=== PATIENT | female | born 1975 | race Two or more races ===

== ENCOUNTER 2016-06-23 16:22 | Inpatient (IN) | payer OTHER ==
[2016-06-23 17:09] VITALS: BMI 22.1
--- NOTE | 2016-06-23 18:20 | PDOC ---
History of Present Illness <Clarisa Mercado - Last Filed: 06/23/16 22:54> - General History Source: Patient Exam Limitations: No Limitations - History of Present Illness Initial Comments: 06/23/16 18:14 40 year old female presents to the ED presents to the emergency room for evaluation of displacement from her home. Pt with a significant past medical history of eye nystagmus, Schizoaffective disorder, vertigo, and seizures. patient also history of mental retardation and was living with her grandmother until recently when her mother was [facility]. Patient has been watched by her neighbor and her sister since patient is unable to care for herself. Patient states went to visit her grandmother today and was told by her sister and the neighbor that she can stay with her grandmother at [facility] while the grandmother was there. Shortly thereafter the family left and staff was made aware of situation and told the patient she is unable to stay here with her grandmother and needs further evaluation. Since they were unable to reach the sister staff had called the ambulance and was brought here to [facility]. Patient has no complaints now and is requesting a dinner tray. Timing/Duration: unsure Associated Symptoms: reports: denies symptoms <Ibeth Hernandez - Last Filed: 06/27/16 14:54> - General Chief Complaint: Altered Mental Status Stated Complaint: MED EVAL Time Seen by Provider: 06/23/16 17:01 Past History <Clarisa Mercado - Last Filed: 06/23/16 22:54> - Past Medical History Psychiatric Problems: Yes (schizoeffective) Seizures: Yes - Immunization History Immunization Up to Date: Yes - Psycho/Social/Smoking Cessation Hx Anxiety: No Suicidal Ideation: No Smoking History: Never smoked Have you smoked in the past 12 months: No Number of Cigarettes Smoked Daily: 0 Information on smoking cessation initiated: No Hx Alcohol Use: No Drug/Substance Use Hx: No Substance Use Type: None Patient Lives Alone: No Lives with/in: gm <Ibeth Hernandez - Last Filed: 06/27/16 14:54> - Past Medical History Allergies/Adverse Reactions: Allergies Allergy/AdvReac Type Severity Reaction Status Date / Time Sulfa (Sulfonamide Allergy Verified 06/23/16 17:09 Antibiotics) Home Medications: Ambulatory Orders Buspirone HCl [Buspar -] 10 mg PO TID 06/22/16 Divalproex *ER* [Depakote *ER* -] 250 mg PO BID 06/22/16 Famotidine [Pepcid -] 20 mg PO DAILY #30 tablet 06/22/16 Meclizine HCl [Antivert -] 12.5 mg PO TID 06/22/16 Ondansetron HCl [Zofran] 4 mg PO BID PRN #10 tablet 06/22/16 Levetiracetam [Keppra] 250 mg PO BID 06/23/16 Risperidone 0.5 mg PO TID 06/23/16 Review of Systems - Review of Systems Able to Perform ROS?: Yes Constitutional: No: Symptoms Reported HEENTM: No: Symptoms Reported Respiratory: No: Symptoms reported Cardiac (ROS): No: Symptoms Reported ABD/GI: No: Symptoms Reported : No: Symptoms Reported Musculoskeletal: No: Symptoms Reported Integumentary: No: Symptoms Reported Neurological: No: Symptoms reported Endocrine: No: Symptoms Reported Hematologic/Lymphatic: No: Symptoms Reported <Ibeth Hernandez - Last Filed: 06/27/16 14:54> *Physical Exam - Vital Signs Last Vital Signs Temp Pulse Resp BP Pulse Ox 98.7 F 87 18 124/83 99 06/23/16 16:55 06/23/16 16:55 06/23/16 16:55 06/23/16 16:55 06/23/16 16:55 <Clarisa Mercado - Last Filed: 06/23/16 22:54> - Vital Signs Last Vital Signs Temp Pulse Resp BP Pulse Ox 98.7 F 87 18 124/83 99 06/23/16 16:55 06/23/16 16:55 06/23/16 16:55 06/23/16 16:55 06/23/16 16:55 - Physical Exam General Appearance: Yes: Nourished, Appropriately Dressed. No: Apparent Distress Respiratory/Chest: positive: Lungs Clear, Normal Breath Sounds. negative: Respiratory Distress, Accessory Muscle Use Cardiovascular: positive: Regular Rhythm, Regular Rate. negative: Murmur Gastrointestinal/Abdominal: positive: Soft. negative: Tenderness Integumentary: positive: Normal Color, Warm, Moist Neurologic: positive: Normal Mood/Affect, Motor Strength 5/5 (ambulatory) <Ibeth Hernandez - Last Filed: 06/27/16 14:54> ED Treatment Course - LABORATORY CBC & Chemistry Diagram: 06/23/16 18:30 06/23/16 18:30 - ADDITIONAL ORDERS Additional order review: Laboratory Results 06/23/16 06/23/16 19:35 18:30 Sodium 138 Potassium 4.2 Chloride 100 Carbon Dioxide 28 Anion Gap 10 BUN 12 Creatinine 1.1 H Creat Clearance w eGFR 55.30 Random Glucose 111 H D Calcium 9.1 Total Bilirubin 0.3 AST 15 ALT 18 Alkaline Phosphatase 65 Total Protein 8.1 Albumin 3.9 Urine Color Yellow Urine Appearance Clear Urine pH 6.0 Ur Specific [place] 1.028 Urine Protein Negative Urine Glucose (UA) Negative Urine Ketones Trace H Urine Blood Negative Urine Nitrite Negative Urine Bilirubin Negative Urine Urobilinogen Negative Ur Leukocyte Esterase Negative 06/23/16 18:30 RBC 4.26 MCV 83.1 MCHC 32.7 RDW 13.3 MPV 8.5 Neutrophils % 54.5 Lymphocytes % 33.9 Monocytes % 10.0 Eosinophils % 1.2 Basophils % 0.4 - Medications Given in the ED: ED Medications Discontinued Medications Generic Name Dose Route Start Last Admin Trade Name Freq PRN Reason Stop Dose Admin Buspirone HCl 10 mg 06/23/16 20:19 06/23/16 21:28 Buspar - PO 06/23/16 20:20 10 mg ONCE ONE Administration Divalproex Sodium 250 mg 06/23/16 20:18 06/23/16 21:28 Depakote *Er* - PO 06/23/16 20:19 250 mg ONCE ONE Administration Meclizine HCl 12.5 mg 06/23/16 20:18 06/23/16 21:34 Antivert - PO 06/23/16 20:19 12.5 mg ONCE ONE Administration Pantoprazole Sodium 40 mg 06/23/16 20:02 06/23/16 21:35 Protonix - PO 06/23/16 20:03 40 mg ONCE ONE Administration <Clarisa Mercado - Last Filed: 06/23/16 22:54> - LABORATORY CBC & Chemistry Diagram: 06/23/16 18:30 06/26/16 09:50 <Ibeth Hernandez - Last Filed: 06/27/16 14:54> Medical Decision Making - Medical Decision Making 06/23/16 19:04 Patient here for displacement from her home. Patient with mental retardation although she is physically high functioning. I had [place] [facility] to get the story and states they called the police after they realized family had left including people from the [employer]. Nursing feed inspection supervisor states they cannot care for this patient and did not contact [facility]. I spoke with my nursing feed inspection supervisor who agrees since [facility] is now closed and social media marketer is gone for the day. patient will stay in the ER and be an ER hold until social media marketer comes in the morning. She also gave me the number for the [employer] at [phone] with a dice table person of [employer] Altamirano. Patient is currently stable and will give patient's medications as scheduled which were confirmed with [facility]. 06/23/16 19:06 Patient also ordered for basic labs and an IV due to her history of seizure <Ibeth Hernandez - Last Filed: 06/27/16 14:54> *DC/Admit/Observation/Transfer - Discharge Dispostion Admit: Yes <Clarisa Mercado - Last Filed: 06/23/16 22:54> <Ibeth Hernandez - Last Filed: 06/27/16 14:54> Diagnosis at time of Disposition: Dehydration, Mental retardation - Discharge Dispostion Condition at time of disposition: Stable
[2016-06-23 18:39] LABS: BASOPHIL 0.4 % (0-2.0); EOSINOPHIL 1.2 % (0-4.5); MCH 27.2 pg (25.7-33.7); MCHC 32.7 g/dl (32.0-36.0); MEAN CELL VOLUME 83.1 fl (80-96); MEAN PLT VOLUME 8.5 fl (7.5-11.1); NEUTROPHILS 54.5 % (42.8-82.8); PLATELET COUNT 185 K/MM3 (134-434); RDW 13.3 % (11.6-15.6); WHITE BLOOD COUNT 5.9 K/mm3 (4.0-10.0)
[2016-06-23 19:08] LABS: ALBUMIN 3.9 g/dl (3.4-5.0); BILIRUBIN,TOTAL 0.3 mg/dL (0.2-1.0); CALCIUM 9.1 mg/dL (8.5-10.1); CREATININE 1.1 mg/dL (0.55-1.02); TOT PROT 8.1 g/dl (6.4-8.2)
--- NOTE | 2016-06-23 19:17 | PN ---
<Cliff Hassan - Last Filed: 06/23/16 19:17> Teaching Attending Note Name of Resident: Otto Dunham ATTENDING PHYSICIAN STATEMENT I saw and evaluated the patient. I reviewed the resident's note and discussed the case with the resident. I agree with the resident's findings and plan as documented. SUBJECTIVE: OBJECTIVE: ASSESSMENT AND PLAN: <Anitha Rascon - Last Filed: 06/23/16 20:18> Teaching Attending Note ATTENDING PHYSICIAN STATEMENT I saw and evaluated the patient. I reviewed the resident's note and discussed the case with the resident. I agree with the resident's findings and plan as documented. SUBJECTIVE: Patient is a 40 yo F questionable historian with a PMHx of eye impairment, schizoaffective disorder, vertigo, seizures, and MR who was living with her grandmother. Patient presented to ER endorsing one episode of bloody vomiting with associated burning epigastric pain since yesterday. Patient states her vomit contained a streak of blood mixed in with vomit. Patient rates her abdominal pain a constant 10/10. Currently patient is living home alone due to grandmother being sent to [facility], but pt is unable to take care of herself. Denies: chest pain, palpitations, lightheadedness, diarrhea and headache. OBJECTIVE: Last Vital Signs Temp Pulse Resp BP Pulse Ox 98.7 F 87 18 124/83 99 06/23/16 16:55 06/23/16 16:55 06/23/16 16:55 06/23/16 16:55 06/23/16 16:55 GENERAL: Awake, alert, and fully oriented, in no acute distress. HEENT: Atraumatic. Moist mucosa. Normocephalic. No sinus tenderness. No LAD. NECK: No JVD. No thyroid masses. Supple. LUNGS: Clear to auscultation bilaterally. No wheezing, rhonchi or rales. HEART: Regular rate and rhythm, normal S1 and S2, no murmurs, rubs or gallops, peripheral pulses normal and equal bilaterally. ABDOMEN: Soft, Periumbilical pain tender to palpation, normoactive bowel sounds. No guarding, no rebound. No Masses. MUSCULOSKELETAL: No joint tenderness or erythema. No muscle tenderness. Normal muscle bulk and tone. EXTREMITIES: Normal inspection, No edema. No clubbing or cyanosis. Moves all extremities. NEUROLOGICAL: Normal speech, no focal sensorimotor deficits. SKIN: Warm, dry, normal turgor, no rashes or lesions noted. CBCD WBC 5.9 K/mm3 (4.0-10.0) 06/23/16 18:30 RBC 4.26 M/mm3 (3.60-5.2) 06/23/16 18:30 Hgb 11.6 GM/dL (10.7-15.3) 06/23/16 18:30 Hct 35.4 % (32.4-45.2) 06/23/16 18:30 MCV 83.1 fl (80-96) 06/23/16 18:30 MCHC 32.7 g/dl (32.0-36.0) 06/23/16 18:30 RDW 13.3 % (11.6-15.6) 06/23/16 18:30 Plt Count 185 K/MM3 (134-434) 06/23/16 18:30 MPV 8.5 fl (7.5-11.1) 06/23/16 18:30 CMP Sodium 138 mmol/L (136-145) 06/23/16 18:30 Potassium 4.2 mmol/L (3.5-5.1) 06/23/16 18:30 Chloride 100 mmol/L (98-107) 06/23/16 18:30 Carbon Dioxide 28 mmol/L (21-32) 06/23/16 18:30 Anion Gap 10 (8-16) 06/23/16 18:30 BUN 12 mg/dL (7-18) 06/23/16 18:30 Creatinine 1.1 mg/dL (0.55-1.02) H 06/23/16 18:30 Creat Clearance w eGFR 55.30 (>60) 06/23/16 18:30 Calcium 9.1 mg/dL (8.5-10.1) 06/23/16 18:30 Total Bilirubin 0.3 mg/dL (0.2-1.0) 06/23/16 18:30 AST 15 U/L (15-37) 06/23/16 18:30 ALT 18 U/L (12-78) 06/23/16 18:30 Alkaline Phosphatase 65 U/L (45-117) 06/23/16 18:30 Total Protein 8.1 g/dl (6.4-8.2) 06/23/16 18:30 Albumin 3.9 g/dl (3.4-5.0) 06/23/16 18:30 ASSESSMENT AND PLAN: Patient is a 40 yo F questionable historian with a PMHx of eye impairment, schizoaffective disorder, vertigo, seizures, and MR who presents with abdominal pain. 1.) Abdominal Pain differential dx PUD gastritis -Continue protonix -If not relieved, considered GI eval outpatient 2.) Hemaemesis -Most likely due to vomiting -Questionable Historian -H&H stable -Continue to monitor -If repeat episodes, can consider GI evaluate. 3.) Homelessness -Social work and nurse outreach case manager consult for placement 4.) Seizure disorder -Continue Depakote 5.) Vertigo -Continue Meclizine 6.) Schizoaffective disorder -Continue home meds DVT ppx -Low risk -SCDs Documentation prepared by Anitha Rascon, acting as diagnostic medical sonographer for Cliff Hassan D.O.
[2016-06-23 19:42] LABS: URINE APPEARANCE CLEAR; URINE BILIRUBIN NEGATIVE (NEGATIVE); URINE BLOOD NEGATIVE (NEGATIVE); URINE COLOR YELLOW; URINE GLUCOSE (UA) NEGATIVE (NEGATIVE); URINE KETONE TRACE (NEGATIVE); URINE LEUK ESTERASE NEGATIVE (NEGATIVE); URINE NITRITE NEGATIVE (NEGATIVE); URINE PROTEIN NEGATIVE (NEGATIVE); URINE UROBILINOGEN NEGATIVE E.U./dl (0.2-1.0)
[2016-06-23] MEDS ORDERED: PANTOPRAZOLE 40 MG TABLET (FP) PO ONE (20:02)
[2016-06-23] MEDS ORDERED: MECLIZINE HCL 12.5 MG TABLET PO ONE (20:18)
[2016-06-23] MEDS ORDERED: DIVALPROEX NA *ER* EXTEND REL 250 MG TABLET.SA PO ONE (20:18)
[2016-06-23] MEDS ORDERED: busPIRone HCL 10 MG TABLET (FP) PO ONE (20:19)
--- NOTE | 2016-06-23 20:20 | HP ---
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 Pt normally lives with her grandmother who takes care of pt. Grandmother recently had surgery done and is now at [facility]) for rehab. During grandmother's hospital stay pt lived with her oldest sister in [place]. Today she was to go to [place] to stay with her grandmother where she was told she would be able to stay. She arrived at [facility] and thereafter was told she would not be allowed to stay and was brought to ER. Here she admitted to having 1 episode of vomit w/ streak of blood on Friday (~5 days ago) which was unprovoked and no other episodes of emesis since then. She also c/o 10/10 abdominal pain, non- radiating, located in epigastric area, constant, burning since yesterday. Pain is worsened with eating and there are no alleviating factors. No change in diet , denies N/V/F/C, diarrhea, constipation, blood in stool, black or tarry stool at this time. She also denies CP, SOB, dysuria, or any peripheral swelling. 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), schizoaffective d/o, vertigo, seizures, mental retardation PAST SURGICAL HISTORY: L eye surgery for retina tear when she was a baby Social History: Smoking: denies Alcohol: denies Drugs: denies Allergies Sulfa (Sulfonamide Antibiotics) Allergy (Verified 06/23/16 17:09) - HOME MEDICATIONS: Home Medications Medication Instructions Recorded Buspirone HCl [Buspar -] 10 mg PO TID 06/22/16 Divalproex *ER* [Depakote *ER* -] 250 mg PO BID 06/22/16 Famotidine [Pepcid -] 20 mg PO DAILY #30 tablet 06/22/16 Meclizine HCl [Antivert -] 12.5 mg PO TID 06/22/16 Ondansetron HCl [Zofran] 4 mg PO BID PRN #10 tablet 04/01/17 REVIEW OF SYSTEMS CONSTITUTIONAL: Absent: fever, chills, diaphoresis, generalized weakness, malaise, loss of appetite, weight change HEENT: Absent: rhinorrhea, nasal congestion, throat pain, throat swelling, difficulty swallowing, mouth swelling, ear pain, eye pain, visual changes CARDIOVASCULAR: Absent: chest pain, syncope, palpitations, irregular heart rate, lightheadedness , peripheral edema RESPIRATORY: Absent: cough, shortness of breath, dyspnea with exertion, orthopnea, wheezing, stridor, hemoptysis GASTROINTESTINAL: abd pain, vomiting Absent: abdominal distension, nausea, diarrhea, constipation, melena, hematochezia GENITOURINARY: Absent: dysuria, frequency, urgency, hesitancy, hematuria, flank pain, genital pain MUSCULOSKELETAL: Absent: myalgia, arthralgia, joint swelling, back pain, neck pain SKIN: Absent: rash, itching, pallor HEMATOLOGIC/IMMUNOLOGIC: Absent: easy bleeding, easy bruising, lymphadenopathy, frequent infections ENDOCRINE: Absent: unexplained weight gain, unexplained weight loss, heat intolerance, cold intolerance NEUROLOGIC: Absent: headache, focal weakness or paresthesias, dizziness, unsteady gait, seizure, mental status changes, bladder or bowel incontinence PSYCHIATRIC: Absent: anxiety, depression, suicidal or homicidal ideation, hallucinations. PHYSICAL EXAMINATION Vital Signs - 24 hr 06/23/16 16:55 Temperature 98.7 F Pulse Rate 87 Respiratory 18 Rate Blood Pressure 124/83 O2 Sat by Pulse 99 Oximetry (%) GENERAL: Awake, alert, and fully oriented, in no acute distress. HEAD: Normal with no signs of trauma. EYES: sclera anicteric, conjunctiva clear. No lid lag. EARS, NOSE, THROAT: Ears normal, nares patent. Moist mucous membranes. NECK: Normal range of motion, supple without lymphadenopathy, JVD, or masses. LUNGS: Breath sounds equal, clear to auscultation bilaterally. No wheezes, and no crackles. No accessory muscle use. HEART: Regular rate and rhythm, normal S1 and S2 without murmur, rub or gallop. ABDOMEN: Soft, tender to palpation in epigastric and periumbilical region, not distended, normoactive bowel sounds, no guarding, no rebound, no masses. No hepatomegaly or splenomegaly. MUSCULOSKELETAL: Normal range of motion at all joints. No bony deformities or tenderness. No CVA tenderness. LOWER EXTREMITIES:well-perfused. No calf tenderness. No peripheral edema. NEUROLOGICAL: Normal speech. Normal gait. PSYCHIATRIC: Cooperative. Good eye contact. Appropriate mood and affect. Mild MR SKIN: Warm, dry, normal turgor, no rashes or lesions noted, normal capillary refill. Laboratory Results - last 24 hr 06/23/16 06/23/16 06/23/16 18:30 18:30 19:35 WBC 5.9 RBC 4.26 Hgb 11.6 Hct 35.4 MCV 83.1 MCHC 32.7 RDW 13.3 Plt Count 185 MPV 8.5 Neutrophils % 54.5 Lymphocytes % 33.9 Monocytes % 10.0 Eosinophils % 1.2 Basophils % 0.4 Sodium 138 Potassium 4.2 Chloride 100 Carbon Dioxide 28 Anion Gap 10 BUN 12 Creatinine 1.1 H Creat Clearance w eGFR 55.30 Random Glucose 111 H D Calcium 9.1 Total Bilirubin 0.3 AST 15 ALT 18 Alkaline Phosphatase 65 Total Protein 8.1 Albumin 3.9 Urine Color Yellow Urine Appearance Clear Urine pH 6.0 Ur Specific [place] 1.028 Urine Protein Negative Urine Glucose (UA) Negative Urine Ketones Trace H Urine Blood Negative Urine Nitrite Negative Urine Bilirubin Negative Urine Urobilinogen Negative Ur Leukocyte Esterase Negative ASSESSMENT/PLAN: 40 y/o F w/PMH of 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 Monitor in obs for abd pain. -Abd pain secondary to PUD vs gastritis -Pt had 1 episode of emesis w/streak of blood 5 days ago -H/H stable, continue to monitor -Protonix 40 mg PO once ordered, continue if it gives pt relief -SUPA on possible CKD -BUN/Cr 02/21.1 -Monitor BUN/Cr -Hx of seizures -c/w keppra 500 mg po bid, depakote er 250 mg po bid -Schizoaffective d/o -c/w buspirone 10 mg po tid, risperidone 0.5 mg po tid -hx of veritgo -c/w meclizine 12.5 mg po tid -DVT ppx -SCDs -FEN -No fluids -electrolytes wnl -Regular diet -Homelessness -licensed clinical social worker -check for placement with grandmother in [place] -Dispo: -Monitor in obs, check for placement with grandmother in [facility] Problem List - Problem (1) Mental retardation Code(s): F79 - UNSPECIFIED INTELLECTUAL DISABILITIES (2) Schizoaffective disorder Code(s): F25.9 - SCHIZOAFFECTIVE DISORDER, UNSPECIFIED (3) Gastritis Code(s): K29.70 - GASTRITIS, UNSPECIFIED, WITHOUT BLEEDING Qualifiers: Gastritis type: unspecified gastritis Chronicity: acute Gastritis bleeding: presence of bleeding unspecified Qualified Code(s): K29.00 - Acute gastritis without bleeding (4) Seizure disorder Code(s): G40.909 - EPILEPSY, UNSP, NOT INTRACTABLE, WITHOUT STATUS EPILEPTICUS (5) Vomiting Code(s): R11.10 - VOMITING, UNSPECIFIED Qualifiers: Vomiting type: unspecified Vomiting Intractability: non-intractable Nausea presence: with nausea Qualified Code(s): R11.2 - Nausea with vomiting, unspecified (6) SUPA (acute kidney injury) Code(s): N17.9 - ACUTE KIDNEY FAILURE, UNSPECIFIED Visit type - Emergency Visit Emergency Visit: Yes ED Registration Date: 06/24/16 Care time: The patient presented to the Emergency Department on the above date and was hospitalized for further evaluation of their emergent condition. - New Patient This patient is new to me today: Yes Date on this admission: 06/27/16 - Critical Care Critical Care patient: No
[2016-06-23] MEDS ORDERED: PANTOPRAZOLE 40 MG TABLET (FP) ONE (21:29)
[2016-06-23] MEDS ORDERED: MECLIZINE HCL 12.5 MG TABLET ONE (21:30)
[2016-06-23] MEDS: levETIRAcetam 250 MG TABLET (FP) PO SCH (22:19)
[2016-06-23] MEDS: risperiDONE 0.5 MG TABLET (FP) PO SCH (22:59)
[2016-06-24] MEDS ORDERED: MECLIZINE HCL 12.5 MG TABLET ONE (06:55)
[2016-06-24] MEDS: MECLIZINE HCL 12.5 MG TABLET PO SCH ×3 (06:56→21:47)
[2016-06-24] MEDS: busPIRone HCL 10 MG TABLET (FP) PO SCH ×3 (08:58→21:48)
[2016-06-24] MEDS: risperiDONE 0.5 MG TABLET (FP) PO SCH ×3 (08:58→21:49)
[2016-06-24] MEDS: DIVALPROEX NA *ER* EXTEND REL 250 MG TABLET.SA PO SCH ×2 (11:15→22:01)
[2016-06-24] MEDS: levETIRAcetam 250 MG TABLET (FP) PO SCH ×2 (11:15→21:47)
[2016-06-24] MEDS ORDERED: PT OWN MED DRAWER 7, Y5N ONE (13:37)
--- NOTE | 2016-06-24 17:36 | PN ---
Physical Exam: SUBJECTIVE: Patient seen and examined at bedside states abdominal pain is the same and has not gotten better or worse. OBJECTIVE: Vital Signs Period Temp Pulse Resp BP Sys/[place] Pulse Ox Last 24 Hr 97.9 F-98 F 92-104 18-18 118-131/73-80 98 GENERAL: The patient is awake and alert ENT: moist mucous membranes. NECK: Trachea midline, full range of motion, supple. LUNGS: Breath sounds equal, clear to auscultation bilaterally HEART: Regular rate and rhythm, S1, S2 ABDOMEN: Soft, nontender, nondistended, normoactive bowel sounds EXTREMITIES: warm, well-perfused Active Medications Generic Name Dose Route Start Last Admin Trade Name Freq PRN Reason Stop Dose Admin Buspirone HCl 10 mg 06/24/16 06:00 06/24/16 14:02 Buspar - PO 10 mg TID DARIAN Administration Divalproex Sodium 250 mg 06/24/16 10:00 06/24/16 11:15 Depakote *Er* - PO 250 mg BID DARIAN Administration Levetiracetam 250 mg 06/23/16 22:00 06/24/16 11:15 Keppra - PO 250 mg BID DARIAN Administration Meclizine HCl 12.5 mg 06/24/16 06:00 06/24/16 14:02 Antivert - PO 12.5 mg TID DARIAN Administration Risperidone 0.5 mg 06/23/16 22:00 06/24/16 14:02 Risperdal - PO 0.5 mg TID DARIAN Administration ASSESSMENT/PLAN: 40F schizoaffective disorder, vertigo, seizures, mental retardation presents to ER due to displacement from home. Abdominal pain:states she gets it after meals mostly possible from gastritis appears to be improving on exam SUPA on possible CKD patient does not have acute kidney injury as her chart was reviewed and it seems her baseline Cr is 1.1 History of seizures continue keppra 500 mg po bid, depakote er 250 mg po bid Schizoaffective disorder continue buspirone 10 mg po tid, risperidone 0.5 mg po tid hx of veritgo continue meclizine 12.5 mg po tid PPx: HSQ/SCDs/Ambulate No GI PPx needed no PT consult needed FEN No IVF No electrolyte issues regular diet lawn maintenance worker and case management aware of patient's situation at this time. patient can not take care of herself and her grandmother who takes care of her is currently in [facility]. per patient her grandmother will be released soon. SW looking at placement options. Visit type - Emergency Visit Emergency Visit: Yes ED Registration Date: 06/24/16 Care time: The patient presented to the Emergency Department on the above date and was hospitalized for further evaluation of their emergent condition. - New Patient This patient is new to me today: Yes Date on this admission: 06/24/16 - Critical Care Critical Care patient: No - Discharge Referral Referred to [id number] No
--- NOTE | 2016-06-24 21:44 | PN ---
Teaching Attending Note Name of Resident: Kenroy Cleveland ATTENDING PHYSICIAN STATEMENT I saw and evaluated the patient. I reviewed the resident's note and discussed the case with the resident. I agree with the resident's findings and plan as documented. PAtient is c/o having abdominal pain that is not improved yet . Vital Signs Temperature 98.6 F 06/24/16 18:00 Pulse Rate 93 H 06/24/16 18:00 Respiratory Rate 18 06/24/16 18:00 Blood Pressure 131/80 06/24/16 12:20 O2 Sat by Pulse Oximetry (%) 98 06/24/16 10:15 CBCD WBC 5.9 K/mm3 (4.0-10.0) 06/23/16 18:30 RBC 4.26 M/mm3 (3.60-5.2) 06/23/16 18:30 Hgb 11.6 GM/dL (10.7-15.3) 06/23/16 18:30 Hct 35.4 % (32.4-45.2) 06/23/16 18:30 MCV 83.1 fl (80-96) 06/23/16 18:30 MCHC 32.7 g/dl (32.0-36.0) 06/23/16 18:30 RDW 13.3 % (11.6-15.6) 06/23/16 18:30 Plt Count 185 K/MM3 (134-434) 06/23/16 18:30 MPV 8.5 fl (7.5-11.1) 06/23/16 18:30 CMP Sodium 138 mmol/L (136-145) 06/23/16 18:30 Potassium 4.2 mmol/L (3.5-5.1) 06/23/16 18:30 Chloride 100 mmol/L (98-107) 06/23/16 18:30 Carbon Dioxide 28 mmol/L (21-32) 06/23/16 18:30 Anion Gap 10 (8-16) 06/23/16 18:30 BUN 12 mg/dL (7-18) 06/23/16 18:30 Creatinine 1.1 mg/dL (0.55-1.02) H 06/23/16 18:30 Creat Clearance w eGFR 55.30 (>60) 06/23/16 18:30 Random Glucose 111 mg/dL (74-106) H D 06/23/16 18:30 Calcium 9.1 mg/dL (8.5-10.1) 06/23/16 18:30 Total Bilirubin 0.3 mg/dL (0.2-1.0) 06/23/16 18:30 AST 15 U/L (15-37) 06/23/16 18:30 ALT 18 U/L (12-78) 06/23/16 18:30 Alkaline Phosphatase 65 U/L (45-117) 06/23/16 18:30 Total Protein 8.1 g/dl (6.4-8.2) 06/23/16 18:30 Albumin 3.9 g/dl (3.4-5.0) 06/23/16 18:30 Current Medications Generic Name Dose Route Start Last Admin Trade Name Freq PRN Reason Stop Dose Admin Buspirone HCl 10 mg 06/24/16 06:00 06/24/16 14:02 Buspar - PO 10 mg TID DARIAN Administration Divalproex Sodium 250 mg 06/24/16 10:00 06/24/16 11:15 Depakote *Er* - PO 250 mg BID DARIAN Administration Levetiracetam 250 mg 06/23/16 22:00 06/24/16 11:15 Keppra - PO 250 mg BID DARIAN Administration Meclizine HCl 12.5 mg 06/24/16 06:00 06/24/16 14:02 Antivert - PO 12.5 mg TID DARIAN Administration Risperidone 0.5 mg 06/23/16 22:00 06/24/16 14:02 Risperdal - PO 0.5 mg TID DARIAN Administration Home Medications Medication Instructions Recorded Buspirone HCl [Buspar -] 10 mg PO TID 06/22/16 Divalproex *ER* [Depakote *ER* -] 250 mg PO BID 06/22/16 Famotidine [Pepcid -] 20 mg PO DAILY #30 tablet 06/22/16 Meclizine HCl [Antivert -] 12.5 mg PO TID 06/22/16 Ondansetron HCl [Zofran] 4 mg PO BID PRN #10 tablet 06/22/16 Levetiracetam [Keppra] 250 mg PO BID 04/02/17 Risperidone 0.5 mg PO TID 06/23/16 ROS/PE: as per resident's note ASSESSMENT AND PLAN: Patient 40yo Female schizoaffective disorder, vertigo, seizures, mental retardation presents to ER due to displacement from home. #Abdominal pain possible from gastritis ;appears to be improving on exam, will increase her Pepcid to 40mg IV for now #SUPA over CKD will continue IVF #History of seizures continue keppra 500 mg po bid, depakote er 250 mg po bid # Schizoaffective disorder continue buspirone 10 mg po tid, risperidone 0.5 mg po tid # hx of veritgo continue meclizine 12.5 mg po tid DVT Px: Lovenox sq
[2016-06-25] MEDS: risperiDONE 0.5 MG TABLET (FP) PO SCH ×3 (05:42→21:25)
[2016-06-25] MEDS: MECLIZINE HCL 12.5 MG TABLET PO SCH ×3 (05:43→21:25)
[2016-06-25] MEDS: busPIRone HCL 10 MG TABLET (FP) PO SCH ×3 (05:43→21:25)
[2016-06-25] MEDS ORDERED: FAMOTIDINE 20 MG/50 ML IVPB 50 ML IVPB SCH (10:00)
[2016-06-25] MEDS ORDERED: SODIUM CHLORIDE 1,000 ML IV SCH (10:00)
[2016-06-25] MEDS: levETIRAcetam 250 MG TABLET (FP) PO SCH ×2 (11:08→21:25)
[2016-06-25] MEDS: DIVALPROEX NA *ER* EXTEND REL 250 MG TABLET.SA PO SCH ×2 (11:08→21:25)
[2016-06-25] MEDS: ENOXAPARIN NA (PORCINE) 40 MG/0.4 ML DISP.SYRIN SQ SCH (11:10)
--- NOTE | 2016-06-25 11:19 | PN ---
Physical Exam: SUBJECTIVE: Patient seen and examined at bedside states her abdominal pain is much better than yesterday OBJECTIVE: Vital Signs Period Temp Pulse Resp BP Sys/Hylton Pulse Ox Last 24 Hr 97.9 F-98.6 F 76-93 18-20 120-131/65-80 98-98 ENERAL: The patient is awake and alert ENT: moist mucous membranes. NECK: Trachea midline, full range of motion, supple. LUNGS: Breath sounds equal, clear to auscultation bilaterally HEART: Regular rate and rhythm, S1, S2 ABDOMEN: Soft, nontender, nondistended, normoactive bowel sounds EXTREMITIES: warm, well-perfused Active Medications Generic Name Dose Route Start Last Admin Trade Name Freq PRN Reason Stop Dose Admin Buspirone HCl 10 mg 06/24/16 06:00 06/25/16 05:43 Buspar - PO 10 mg TID DARIAN Administration Divalproex Sodium 250 mg 06/24/16 10:00 06/25/16 11:08 Depakote *Er* - PO 250 mg BID DARIAN Administration Enoxaparin Sodium 40 mg 06/25/16 10:00 06/25/16 11:10 Lovenox - SQ Not Given DAILY DARIAN Famotidine/Sodium Chloride 50 mls @ 100 mls/hr 06/25/16 10:00 Pepcid 20 Mg Premixed Ivpb - IVPB BID DARIAN Levetiracetam 250 mg 06/23/16 22:00 06/25/16 11:08 Keppra - PO 250 mg BID DARIAN Administration Meclizine HCl 12.5 mg 06/24/16 06:00 06/25/16 05:43 Antivert - PO 12.5 mg TID DARIAN Administration Risperidone 0.5 mg 06/23/16 22:00 06/25/16 05:42 Risperdal - PO 0.5 mg TID DARIAN Administration ASSESSMENT/PLAN: 40F schizoaffective disorder, vertigo, seizures, mental retardation presents to ER due to displacement from home. Abdominal pain:states she gets it after meals mostly possible from gastritis continue to improve restart pepcid SUPA on possible CKD patient does not have acute kidney injury as her chart was reviewed and it seems her baseline Cr is 1.1 History of seizures continue keppra 500 mg po bid, depakote er 250 mg po bid Schizoaffective disorder continue buspirone 10 mg po tid, risperidone 0.5 mg po tid hx of veritgo continue meclizine 12.5 mg po tid PPx: HSQ/SCDs/Ambulate Pepcid no PT consult needed FEN No IVF No electrolyte issues regular diet Dispo: loft worker and case management aware of patient's situation at this time. patient can not take care of herself and her grandmother who takes care of her is currently in [facility]. per patient her grandmother will be released soon. SW looking at placement options. Visit type - Emergency Visit Emergency Visit: Yes ED Registration Date: 06/24/16 Care time: The patient presented to the Emergency Department on the above date and was hospitalized for further evaluation of their emergent condition. - New Patient This patient is new to me today: No - Critical Care Critical Care patient: No
--- NOTE | 2016-06-25 14:12 | PN ---
Teaching Attending Note Name of Resident: Kenroy Cleveland ATTENDING PHYSICIAN STATEMENT I saw and evaluated the patient. I reviewed the resident's note and discussed the case with the resident. I agree with the resident's findings and plan as documented. Patient is comfortable with no acute distress, no shortness of breath. Abdominal pain is better today Vital Signs Temperature 98.2 F 06/25/16 10:00 Pulse Rate 76 06/25/16 10:00 Respiratory Rate 20 06/25/16 10:00 Blood Pressure 124/70 06/25/16 10:00 O2 Sat by Pulse Oximetry (%) 98 06/25/16 05:51 CBCD WBC 5.9 K/mm3 (4.0-10.0) 06/23/16 18:30 RBC 4.26 M/mm3 (3.60-5.2) 06/23/16 18:30 Hgb 11.6 GM/dL (10.7-15.3) 06/23/16 18:30 Hct 35.4 % (32.4-45.2) 06/23/16 18:30 MCV 83.1 fl (80-96) 06/23/16 18:30 MCHC 32.7 g/dl (32.0-36.0) 06/23/16 18:30 RDW 13.3 % (11.6-15.6) 06/23/16 18:30 Plt Count 185 K/MM3 (134-434) 06/23/16 18:30 MPV 8.5 fl (7.5-11.1) 06/23/16 18:30 CMP Sodium 138 mmol/L (136-145) 06/23/16 18:30 Potassium 4.2 mmol/L (3.5-5.1) 06/23/16 18:30 Chloride 100 mmol/L (98-107) 06/23/16 18:30 Carbon Dioxide 28 mmol/L (21-32) 06/23/16 18:30 Anion Gap 10 (8-16) 06/23/16 18:30 BUN 12 mg/dL (7-18) 06/23/16 18:30 Creatinine 1.1 mg/dL (0.55-1.02) H 06/23/16 18:30 Creat Clearance w eGFR 55.30 (>60) 06/23/16 18:30 Random Glucose 111 mg/dL (74-106) H D 06/23/16 18:30 Calcium 9.1 mg/dL (8.5-10.1) 06/23/16 18:30 Total Bilirubin 0.3 mg/dL (0.2-1.0) 06/23/16 18:30 AST 15 U/L (15-37) 06/23/16 18:30 ALT 18 U/L (12-78) 06/23/16 18:30 Alkaline Phosphatase 65 U/L (45-117) 06/23/16 18:30 Total Protein 8.1 g/dl (6.4-8.2) 06/23/16 18:30 Albumin 3.9 g/dl (3.4-5.0) 06/23/16 18:30 Home Medications Medication Instructions Recorded Buspirone HCl [Buspar -] 10 mg PO TID 06/22/16 Divalproex *ER* [Depakote *ER* -] 250 mg PO BID 06/22/16 Famotidine [Pepcid -] 20 mg PO DAILY #30 tablet 06/22/16 Meclizine HCl [Antivert -] 12.5 mg PO TID 06/22/16 Ondansetron HCl [Zofran] 4 mg PO BID PRN #10 tablet 06/22/16 Levetiracetam [Keppra] 250 mg PO BID 06/23/16 Risperidone 0.5 mg PO TID 06/23/16 ROS/PE: as per resident's note ASSESSMENT AND PLAN: Patient 40yo Female schizoaffective disorder, vertigo, seizures, mental retardation presents to ER due to displacement from home. #Abdominal pain improving possible from gastritis will place her on Zantac #History of seizures continue keppra 500 mg po bid, depakote er 250 mg po bid # Schizoaffective disorder continue buspirone 10 mg po tid, risperidone 0.5 mg po tid # hx of veritgo continue meclizine 12.5 mg po tid DVT Px: Lovenox sq Patient might need palcemant to [place]
[2016-06-25] MEDS ORDERED: ACETAMINOPHEN 325 MG TABLET (FP) PO ONE (20:44)
[2016-06-25] MEDS ORDERED: PT OWN MED DRAWER 7, Y5N ONE (21:09)
[2016-06-25] MEDS: RANITIDINE HCL 150 MG TABLET (FP) PO SCH (21:26)
[2016-06-26] MEDS ORDERED: PT OWN MED DRAWER 7, Y5N ONE ×3 (05:57→13:02)
[2016-06-26] MEDS: MECLIZINE HCL 12.5 MG TABLET PO SCH ×3 (06:14→22:00)
[2016-06-26] MEDS: risperiDONE 0.5 MG TABLET (FP) PO SCH ×3 (06:14→22:00)
[2016-06-26] MEDS: busPIRone HCL 10 MG TABLET (FP) PO SCH ×3 (06:14→22:00)
[2016-06-26] MEDS: RANITIDINE HCL 150 MG TABLET (FP) PO SCH ×2 (09:53→21:59)
[2016-06-26] MEDS: DIVALPROEX NA *ER* EXTEND REL 250 MG TABLET.SA PO SCH ×2 (09:53→22:00)
[2016-06-26] MEDS: ENOXAPARIN NA (PORCINE) 40 MG/0.4 ML DISP.SYRIN SQ SCH (09:53)
[2016-06-26] MEDS: levETIRAcetam 250 MG TABLET (FP) PO SCH ×2 (09:53→21:59)
[2016-06-26 10:20] LABS: CALCIUM 8.1 mg/dL (8.5-10.1)
--- NOTE | 2016-06-26 15:28 | PN ---
Physical Exam: SUBJECTIVE: Patient seen and examined at bedside some abdominal pain which is improving OBJECTIVE: Vital Signs Period Temp Pulse Resp BP Sys/Hylton Pulse Ox Last 24 Hr 97.6 F-98.2 F 56-87 18-20 99-131/57-82 98 GENERAL: The patient is awake and alert ENT: moist mucous membranes. NECK: Trachea midline, full range of motion, supple. LUNGS: Breath sounds equal, clear to auscultation bilaterally HEART: Regular rate and rhythm, S1, S2 ABDOMEN: Soft, nontender, nondistended, normoactive bowel sounds EXTREMITIES: warm, well-perfused Laboratory Results - last 24 hr 06/26/16 09:50 Sodium 140 Potassium 3.7 Chloride 106 Carbon Dioxide 26 Anion Gap 8 BUN 10 Creatinine 1.0 Random Glucose 100 Calcium 8.1 L Active Medications Generic Name Dose Route Start Last Admin Trade Name Freq PRN Reason Stop Dose Admin Buspirone HCl 10 mg 06/24/16 06:00 06/26/16 13:08 Buspar - PO 10 mg TID DARIAN Administration Divalproex Sodium 250 mg 06/24/16 10:00 06/26/16 09:53 Depakote *Er* - PO 250 mg BID DARIAN Administration Enoxaparin Sodium 40 mg 06/25/16 10:00 06/26/16 09:53 Lovenox - SQ Not Given DAILY DARIAN Levetiracetam 250 mg 06/23/16 22:00 06/26/16 09:53 Keppra - PO 250 mg BID DARIAN Administration Meclizine HCl 12.5 mg 06/24/16 06:00 06/26/16 13:08 Antivert - PO 12.5 mg TID DARIAN Administration Ranitidine HCl 150 mg 06/25/16 22:00 06/26/16 09:53 Zantac - PO 150 mg BID DARIAN Administration Risperidone 0.5 mg 06/23/16 22:00 06/26/16 13:08 Risperdal - PO 0.5 mg TID DARIAN Administration ASSESSMENT/PLAN: 40F schizoaffective disorder, vertigo, seizures, mental retardation presents to ER due to displacement from home. Abdominal pain:states she gets it after meals mostly possible from gastritis continue to improve continue zantac SUPA on possible CKD patient does not have acute kidney injury as her chart was reviewed and it seems her baseline Cr is 1.1 History of seizures continue keppra 500 mg po bid, depakote er 250 mg po bid Schizoaffective disorder continue buspirone 10 mg po tid, risperidone 0.5 mg po tid hx of veritgo continue meclizine 12.5 mg po tid PPx: Lovenox/SCDs/Ambulate Zanat no PT consult needed FEN No IVF No electrolyte issues regular diet Dispo: shellfish bed worker and case management aware of patient's situation at this time. patient can not take care of herself and her grandmother who takes care of her is currently in [facility]. per patient her grandmother will be released soon. SW looking at placement options. Visit type - Emergency Visit Emergency Visit: Yes ED Registration Date: 06/24/16 Care time: The patient presented to the Emergency Department on the above date and was hospitalized for further evaluation of their emergent condition. - New Patient This patient is new to me today: No - Critical Care Critical Care patient: No
--- NOTE | 2016-06-26 18:24 | PN ---
Teaching Attending Note Name of Resident: Kenroy Cleveland ATTENDING PHYSICIAN STATEMENT I saw and evaluated the patient. I reviewed the resident's note and discussed the case with the resident. I agree with the resident's findings and plan as documented. SUBJECTIVE: cont to have mild epigastric pain , no other complaints OBJECTIVE: NAD CV : RRR Lungs : CTAB ext : no edema Abd ;soft, NT, NL BS ASSESSMENT AND PLAN: 40 y/o lady with mild MR, schizoaffective DO , and seizures who presented with abd pain 1- possible gastritis : cont zantac 2- vertigo : cont meclizine 3- Schizoaffective disorder : continue buspirone and risperidone 4- seizure do : cont valproik acid Current Medications 4- seizure do : cont valproik acid Generic Name Dose Route Start Last Admin Trade Name Freq PRN Reason Stop Dose Admin Buspirone HCl 10 mg 06/24/16 06:00 06/26/16 13:08 Buspar - PO 10 mg TID DARIAN Administration Divalproex Sodium 250 mg 06/24/16 10:00 06/26/16 09:53 Depakote *Er* - PO 250 mg BID DARIAN Administration Enoxaparin Sodium 40 mg 06/25/16 10:00 06/26/16 09:53 Lovenox - SQ Not Given DAILY DARIAN Levetiracetam 250 mg 06/23/16 22:00 06/26/16 09:53 Keppra - PO 250 mg BID DARIAN Administration Meclizine HCl 12.5 mg 06/24/16 06:00 06/26/16 13:08 Antivert - PO 12.5 mg TID DARIAN Administration Ranitidine HCl 150 mg 06/25/16 22:00 06/26/16 09:53 Zantac - PO 150 mg BID DARIAN Administration Risperidone 0.5 mg 06/23/16 22:00 06/26/16 13:08 Risperdal - PO 0.5 mg TID DARIAN Administration
[2016-06-27] MEDS: busPIRone HCL 10 MG TABLET (FP) PO SCH ×3 (05:58→21:05)
[2016-06-27] MEDS: MECLIZINE HCL 12.5 MG TABLET PO SCH ×3 (05:58→21:05)
[2016-06-27] MEDS: risperiDONE 0.5 MG TABLET (FP) PO SCH ×3 (05:59→21:05)
[2016-06-27] MEDS ORDERED: PT OWN MED DRAWER 7, Y5N ONE ×3 (10:30→20:49)
[2016-06-27] MEDS: DIVALPROEX NA *ER* EXTEND REL 250 MG TABLET.SA PO SCH ×2 (10:31→21:05)
[2016-06-27] MEDS: levETIRAcetam 250 MG TABLET (FP) PO SCH ×2 (10:31→21:05)
[2016-06-27] MEDS: RANITIDINE HCL 150 MG TABLET (FP) PO SCH ×2 (10:31→21:05)
[2016-06-27] MEDS: ENOXAPARIN NA (PORCINE) 40 MG/0.4 ML DISP.SYRIN SQ SCH (10:32)
--- NOTE | 2016-06-27 12:25 | PN ---
Physical Exam: SUBJECTIVE: Patient seen and examined at bedside feels better today OBJECTIVE: Vital Signs Period Temp Pulse Resp BP Sys/Hylton Pulse Ox Last 24 Hr 97.8 F-99.5 F 70-87 16-20 106-129/50-74 97 GENERAL: The patient is awake and alert ENT: moist mucous membranes. NECK: Trachea midline, full range of motion, supple. LUNGS: Breath sounds equal, clear to auscultation bilaterally HEART: Regular rate and rhythm, S1, S2 ABDOMEN: Soft, nontender, nondistended, normoactive bowel sounds EXTREMITIES: warm, well-perfused Active Medications Generic Name Dose Route Start Last Admin Trade Name Freq PRN Reason Stop Dose Admin Buspirone HCl 10 mg 06/24/16 06:00 06/27/16 05:58 Buspar - PO 10 mg TID DARIAN Administration Divalproex Sodium 250 mg 06/24/16 10:00 06/27/16 10:31 Depakote *Er* - PO 250 mg BID DARIAN Administration Enoxaparin Sodium 40 mg 06/25/16 10:00 06/27/16 10:32 Lovenox - SQ Not Given DAILY DARIAN Levetiracetam 250 mg 06/23/16 22:00 06/27/16 10:31 Keppra - PO 250 mg BID DARIAN Administration Meclizine HCl 12.5 mg 06/24/16 06:00 06/27/16 05:58 Antivert - PO 12.5 mg TID DARIAN Administration Ranitidine HCl 150 mg 06/25/16 22:00 06/27/16 10:31 Zantac - PO 150 mg BID DARIAN Administration Risperidone 0.5 mg 06/23/16 22:00 06/27/16 05:59 Risperdal - PO 0.5 mg TID DARIAN Administration ASSESSMENT/PLAN: 40F schizoaffective disorder, vertigo, seizures, mental retardation presents to ER due to displacement from home. Abdominal pain:states she gets it after meals mostly possible from gastritis continue to improve continue zantac SUPA on possible CKD patient does not have acute kidney injury as her chart was reviewed and it seems her baseline Cr is 1.1 Cr today 1.0 History of seizures continue keppra 500 mg po bid, depakote er 250 mg po bid Schizoaffective disorder continue buspirone 10 mg po tid, risperidone 0.5 mg po tid hx of veritgo continue meclizine 12.5 mg po tid PPx: Lovenox/SCDs/Ambulate nat no PT consult needed FEN No IVF No electrolyte issues regular diet Dispo: tension worker and case management aware of patient's situation at this time. patient can not take care of herself and her grandmother who takes care of her is currently in [facility]. per patient her grandmother will be released soon. SW looking at placement options. Visit type - Emergency Visit Emergency Visit: Yes ED Registration Date: 06/24/16 Care time: The patient presented to the Emergency Department on the above date and was hospitalized for further evaluation of their emergent condition. - New Patient This patient is new to me today: No - Critical Care Critical Care patient: No - Discharge Referral Referred to [facility] Med P.C.: No
--- NOTE | 2016-06-27 15:33 | PN ---
Teaching Attending Note Name of Resident: Kenroy Cleveland ATTENDING PHYSICIAN STATEMENT I saw and evaluated the patient. I reviewed the resident's note and discussed the case with the resident. I agree with the resident's findings and plan as documented. SUBJECTIVE: no fever or chills, ate well today with no abd pain OBJECTIVE: NAD CV : RRR Lungs : CTAB ext : no edema Abd ;soft, NT, NL BS ASSESSMENT AND PLAN: 40 y/o lady with mild MR, schizoaffective DO , and seizures who presented with abd pain 1- possible gastritis : cont zantac 2- vertigo : cont meclizine 3- Schizoaffective disorder : continue buspirone and risperidone 4- seizure do : cont valproic acid dispo : pending placement
[2016-06-28] MEDS ORDERED: PT OWN MED DRAWER 7, Y5N ONE ×5 (05:57→21:53)
[2016-06-28] MEDS: busPIRone HCL 10 MG TABLET (FP) PO SCH ×3 (06:03→21:55)
[2016-06-28] MEDS: risperiDONE 0.5 MG TABLET (FP) PO SCH ×3 (06:04→21:55)
[2016-06-28] MEDS: MECLIZINE HCL 12.5 MG TABLET PO SCH ×3 (06:04→23:00)
[2016-06-28] MEDS: levETIRAcetam 250 MG TABLET (FP) PO SCH ×2 (09:58→21:55)
[2016-06-28] MEDS: ENOXAPARIN NA (PORCINE) 40 MG/0.4 ML DISP.SYRIN SQ SCH (09:58)
[2016-06-28] MEDS: RANITIDINE HCL 150 MG TABLET (FP) PO SCH ×2 (09:58→21:55)
[2016-06-28] MEDS: DIVALPROEX NA *ER* EXTEND REL 250 MG TABLET.SA PO SCH ×2 (09:58→21:55)
--- NOTE | 2016-06-28 13:21 | PN ---
Physical Exam: SUBJECTIVE: Patient seen and examined at bedside no issues overnight OBJECTIVE: Vital Signs Period Temp Pulse Resp BP Sys/Hylton Pulse Ox Last 24 Hr 97.6 F-98.1 F 76-84 20-21 104-130/60-70 99 GENERAL: The patient is awake and alert ENT: moist mucous membranes. NECK: Trachea midline, full range of motion, supple. LUNGS: Breath sounds equal, clear to auscultation bilaterally HEART: Regular rate and rhythm, S1, S2 ABDOMEN: Soft, nontender, nondistended, normoactive bowel sounds EXTREMITIES: warm, well-perfused Active Medications Generic Name Dose Route Start Last Admin Trade Name Freq PRN Reason Stop Dose Admin Buspirone HCl 10 mg 06/24/16 06:00 06/28/16 06:03 Buspar - PO 10 mg TID DARIAN Administration Divalproex Sodium 250 mg 06/24/16 10:00 06/28/16 09:58 Depakote *Er* - PO 250 mg BID DARIAN Administration Enoxaparin Sodium 40 mg 06/25/16 10:00 06/28/16 09:58 Lovenox - SQ Not Given DAILY DARIAN Levetiracetam 250 mg 06/23/16 22:00 06/28/16 09:58 Keppra - PO 250 mg BID DARIAN Administration Meclizine HCl 12.5 mg 06/24/16 06:00 06/28/16 06:04 Antivert - PO 12.5 mg TID DARIAN Administration Ranitidine HCl 150 mg 06/25/16 22:00 06/28/16 09:58 Zantac - PO 150 mg BID DARIAN Administration Risperidone 0.5 mg 06/23/16 22:00 06/28/16 06:04 Risperdal - PO 0.5 mg TID DARIAN Administration ASSESSMENT/PLAN: 40F schizoaffective disorder, vertigo, seizures, mental retardation presents to ER due to displacement from home. Abdominal pain:states she gets it after meals mostly possible from gastritis continue to improve continue zantac SUPA on possible CKD patient does not have acute kidney injury as her chart was reviewed and it seems her baseline Cr is 1.1 Cr today 1.0 History of seizures continue keppra 500 mg po bid, depakote er 250 mg po bid Schizoaffective disorder continue buspirone 10 mg po tid, risperidone 0.5 mg po tid hx of veritgo continue meclizine 12.5 mg po tid PPx: Lovenox/SCDs/Ambulate Zanatc no PT consult needed FEN No IVF No electrolyte issues regular diet Dispo: community center worker and case management aware of patient's situation at this time. patient can not take care of herself and her grandmother who takes care of her is currently in [facility]. SW lookinf for options for placement. still unsuccessful at this time Visit type - Emergency Visit Emergency Visit: Yes ED Registration Date: 06/24/16 Care time: The patient presented to the Emergency Department on the above date and was hospitalized for further evaluation of their emergent condition. - New Patient This patient is new to me today: No - Critical Care Critical Care patient: No - Discharge Referral Referred to [facility] Med P.C.: No
--- NOTE | 2016-06-28 18:51 | PN ---
Teaching Attending Note Name of Resident: Kenroy Cleveland ATTENDING PHYSICIAN STATEMENT I saw and evaluated the patient. I reviewed the resident's note and discussed the case with the resident. I agree with the resident's findings and plan as documented. SUBJECTIVE: no fever or chills , no abd pain . tolerated diet today OBJECTIVE: NAD CV : RRR Lungs : CTAB ext : no edema Abd ;soft, NT, NL BS ASSESSMENT AND PLAN: 40 y/o lady with mild MR, schizoaffective DO , and seizures who presented with abd pain 1- Possible gastritis : cont zantac 2- Vertigo: cont meclizine 3- Schizoaffective disorder : continue buspirone and risperidone 4- Seizure do : cont valproic acid dispo : pending placement. case was d/w SW today
[2016-06-29] MEDS ORDERED: PT OWN MED DRAWER 7, Y5N ONE ×6 (05:29→21:19)
[2016-06-29] MEDS: busPIRone HCL 10 MG TABLET (FP) PO SCH ×3 (05:30→21:17)
[2016-06-29] MEDS: risperiDONE 0.5 MG TABLET (FP) PO SCH ×3 (05:30→21:17)
[2016-06-29] MEDS: MECLIZINE HCL 12.5 MG TABLET PO SCH ×3 (05:30→21:17)
[2016-06-29] MEDS: ENOXAPARIN NA (PORCINE) 40 MG/0.4 ML DISP.SYRIN SQ SCH (10:30)
[2016-06-29] MEDS: RANITIDINE HCL 150 MG TABLET (FP) PO SCH ×2 (10:31→21:17)
[2016-06-29] MEDS: DIVALPROEX NA *ER* EXTEND REL 250 MG TABLET.SA PO SCH ×2 (10:31→21:23)
[2016-06-29] MEDS: levETIRAcetam 250 MG TABLET (FP) PO SCH ×2 (10:31→21:17)
--- NOTE | 2016-06-29 14:33 | PN ---
Teaching Attending Note Name of Resident: Kenroy Cleveland ATTENDING PHYSICIAN STATEMENT I saw and evaluated the patient. I reviewed the resident's note and discussed the case with the resident. I agree with the resident's findings and plan as documented. SUBJECTIVE: no apin , no fever or chills OBJECTIVE: NAD CV : RRR, 2/6 SM at LUSB Lungs : CTAB ext : no edema Abd ;soft, NT, NL BS ASSESSMENT AND PLAN: 40 y/o lady with mild MR, schizoaffective DO , and seizures who presented with abd pain 1- Possible gastritis : cont zantac 2- Vertigo: cont meclizine 3- Schizoaffective disorder : continue buspirone and risperidone 4- Seizure do : cont valproic acid dispo : pending placement.
--- NOTE | 2016-06-29 15:27 | PN ---
Physical Exam: SUBJECTIVE: Patient seen and examined at bedside feels well minimal abdominal pain OBJECTIVE: Vital Signs Period Temp Pulse Resp BP Sys/Hylton Pulse Ox Last 24 Hr 97.8 F-98.5 F 64-92 16-20 104-126/55-91 98-99 GENERAL: The patient is awake and alert ENT: moist mucous membranes. NECK: Trachea midline, full range of motion, supple. LUNGS: Breath sounds equal, clear to auscultation bilaterally HEART: Regular rate and rhythm, S1, S2 ABDOMEN: Soft, nontender, nondistended, normoactive bowel sounds EXTREMITIES: warm, well-perfused Active Medications Generic Name Dose Route Start Last Admin Trade Name Freq PRN Reason Stop Dose Admin Buspirone HCl 10 mg 06/24/16 06:00 06/29/16 13:38 Buspar - PO 10 mg TID DARIAN Administration Divalproex Sodium 250 mg 06/24/16 10:00 06/29/16 10:31 Depakote *Er* - PO 250 mg BID DARIAN Administration Enoxaparin Sodium 40 mg 06/25/16 10:00 06/29/16 10:30 Lovenox - SQ 40 mg DAILY DARIAN Administration Levetiracetam 250 mg 06/23/16 22:00 06/29/16 10:31 Keppra - PO 250 mg BID DARIAN Administration Meclizine HCl 12.5 mg 06/24/16 06:00 06/29/16 13:37 Antivert - PO 12.5 mg TID DARIAN Administration Ranitidine HCl 150 mg 06/25/16 22:00 06/29/16 10:31 Zantac - PO 150 mg BID DARIAN Administration Risperidone 0.5 mg 06/23/16 22:00 06/29/16 13:38 Risperdal - PO 0.5 mg TID DARIAN Administration ASSESSMENT/PLAN: 40F schizoaffective disorder, vertigo, seizures, mental retardation presents to ER due to displacement from home. Abdominal pain:states she gets it after meals mostly possible from gastritis continue to improve continue zantac SUPA on possible CKD patient does not have acute kidney injury as her chart was reviewed and it seems her baseline Cr is 1.1 Cr today 1.0 History of seizures continue keppra 500 mg po bid, depakote er 250 mg po bid Schizoaffective disorder continue buspirone 10 mg po tid, risperidone 0.5 mg po tid hx of veritgo continue meclizine 12.5 mg po tid PPx: Lovenox/SCDs/Ambulate Zanatc no PT consult needed FEN No IVF No electrolyte issues regular diet Dispo: auto body worker and case management aware of patient's situation at this time. patient can not take care of herself and her grandmother who takes care of her is currently in [facility]. SW lookinf for options for placement. still unsuccessful at this time Visit type - Emergency Visit Emergency Visit: Yes ED Registration Date: 06/24/16 Care time: The patient presented to the Emergency Department on the above date and was hospitalized for further evaluation of their emergent condition. - New Patient This patient is new to me today: No - Critical Care Critical Care patient: No
[2016-06-30] MEDS ORDERED: PT OWN MED DRAWER 7, Y5N ONE ×3 (05:30→20:59)
[2016-06-30] MEDS: MECLIZINE HCL 12.5 MG TABLET PO SCH ×3 (05:49→21:11)
[2016-06-30] MEDS: risperiDONE 0.5 MG TABLET (FP) PO SCH ×3 (05:49→21:11)
[2016-06-30] MEDS: busPIRone HCL 10 MG TABLET (FP) PO SCH ×3 (05:49→21:12)
[2016-06-30] MEDS: levETIRAcetam 250 MG TABLET (FP) PO SCH ×2 (09:48→21:11)
[2016-06-30] MEDS: ENOXAPARIN NA (PORCINE) 40 MG/0.4 ML DISP.SYRIN SQ SCH (09:48)
[2016-06-30] MEDS: DIVALPROEX NA *ER* EXTEND REL 250 MG TABLET.SA PO SCH ×2 (09:48→21:12)
[2016-06-30] MEDS: RANITIDINE HCL 150 MG TABLET (FP) PO SCH ×2 (09:48→21:11)
--- NOTE | 2016-06-30 14:51 | PN ---
Progress Note (short form) - Note Progress Note: Subjective: nausea , but no vomiting . ate all her lunch today Objective: Vital Signs: Last Vital Signs Temp Pulse Resp BP Pulse Ox 97.9 F 73 20 119/78 98 06/30/16 14:14 06/30/16 14:14 06/30/16 14:14 06/30/16 08:00 06/30/16 08:00 NAD CV : RRR, 2/6 SM at LUSB Lungs : CTAB ext : no edema Abd ;soft, NT, NL BS ASSESSMENT AND PLAN: 40 y/o lady with mild MR, schizoaffective DO , and seizures who presented with abd pain 1- Possible gastritis : cont zantac treat nausea 2- Vertigo: cont meclizine 3- Schizoaffective disorder : continue buspirone and risperidone 4- Seizure do : cont valproic acid dispo : pending placement. Visit type - Emergency Visit Emergency Visit: Yes ED Registration Date: 06/24/16 Care time: The patient presented to the Emergency Department on the above date and was hospitalized for further evaluation of their emergent condition. - New Patient This patient is new to me today: No - Critical Care Critical Care patient: No
[2016-07-01] MEDS ORDERED: PT OWN MED DRAWER 7, Y5N ONE ×2 (05:30→13:18)
[2016-07-01] MEDS: risperiDONE 0.5 MG TABLET (FP) PO SCH ×3 (05:51→22:32)
[2016-07-01] MEDS: MECLIZINE HCL 12.5 MG TABLET PO SCH ×3 (05:51→22:31)
[2016-07-01] MEDS: busPIRone HCL 10 MG TABLET (FP) PO SCH ×3 (05:51→22:31)
[2016-07-01] MEDS: levETIRAcetam 250 MG TABLET (FP) PO SCH ×2 (09:45→22:31)
[2016-07-01] MEDS: RANITIDINE HCL 150 MG TABLET (FP) PO SCH ×2 (09:45→22:31)
[2016-07-01] MEDS: DIVALPROEX NA *ER* EXTEND REL 250 MG TABLET.SA PO SCH ×2 (09:45→22:31)
[2016-07-01] MEDS: ENOXAPARIN NA (PORCINE) 40 MG/0.4 ML DISP.SYRIN SQ SCH (09:46)
--- NOTE | 2016-07-01 13:27 | PN ---
Addendum entered and electronically signed by Kenroy Cleveland RES 07/01/16 14:02: patient might be able to go home with a 24 hour home health aid but will need to have capacity to direct home health aide will get psychiatry consult to see if has capacity Original Note: Physical Exam: SUBJECTIVE: Patient seen and examined at bedside states abdominal pain is better but now complains of a sore throat "My throat hurts when i swallow" OBJECTIVE: Vital Signs Period Temp Pulse Resp BP Sys/Hylton Pulse Ox Last 24 Hr 97.3 F-98.1 F 73-89 16-20 115-132/58-77 98 GENERAL: The patient is awake and alert ENT: moist mucous membranes. no throat redness or purulence. There is an enlarged palpable lymphnode in the left neck near the SCM. NECK: Trachea midline, full range of motion, supple. LUNGS: Breath sounds equal, clear to auscultation bilaterally HEART: Regular rate and rhythm, S1, S2 ABDOMEN: Soft, nontender, nondistended, normoactive bowel sounds EXTREMITIES: warm, well-perfused Active Medications Generic Name Dose Route Start Last Admin Trade Name Freq PRN Reason Stop Dose Admin Buspirone HCl 10 mg 06/24/16 06:00 07/01/16 13:19 Buspar - PO 10 mg TID DARIAN Administration Divalproex Sodium 250 mg 06/24/16 10:00 07/01/16 09:45 Depakote *Er* - PO 250 mg BID DARIAN Administration Enoxaparin Sodium 40 mg 06/25/16 10:00 07/01/16 09:46 Lovenox - SQ Not Given DAILY DARIAN Levetiracetam 250 mg 06/23/16 22:00 07/01/16 09:45 Keppra - PO 250 mg BID DARIAN Administration Meclizine HCl 12.5 mg 06/24/16 06:00 07/01/16 13:19 Antivert - PO 12.5 mg TID DARIAN Administration Ranitidine HCl 150 mg 06/25/16 22:00 07/01/16 09:45 Zantac - PO 150 mg BID DARIAN Administration Risperidone 0.5 mg 06/23/16 22:00 07/01/16 13:19 Risperdal - PO 0.5 mg TID DARIAN Administration ASSESSMENT/PLAN: 40F schizoaffective disorder, vertigo, seizures, mental retardation presents to ER due to displacement from home. Abdominal pain:states she gets it after meals mostly possible from gastritis continue to improve continue zantac Sore throat: probably viral pharyngitis no evidence of bacterial infection observe for now SUPA on possible CKD patient does not have acute kidney injury as her chart was reviewed and it seems her baseline Cr is 1.1 Cr today 1.0 History of seizures continue keppra 500 mg po bid, depakote er 250 mg po bid Schizoaffective disorder continue buspirone 10 mg po tid, risperidone 0.5 mg po tid hx of veritgo continue meclizine 12.5 mg po tid PPx: Lovenox/SCDs/Ambulate [facility]an[facility] no PT consult needed FEN No IVF No electrolyte issues regular diet 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 patient can not take care of herself and her grandmother who takes care of her is currently in [facility]. SW looking for options for placement. still unsuccessful at this time Visit type - Emergency Visit Emergency Visit: Yes ED Registration Date: 06/24/16 Care time: The patient presented to the Emergency Department on the above date and was hospitalized for further evaluation of their emergent condition. - New Patient This patient is new to me today: No - Critical Care Critical Care patient: No - Discharge Referral Referred to [facility] Med P.C.: No
--- NOTE | 2016-07-01 17:38 | PN ---
Teaching Attending Note Name of Resident: Kenroy Cleveland ATTENDING PHYSICIAN STATEMENT I saw and evaluated the patient. I reviewed the resident's note and discussed the case with the resident. I agree with the resident's findings and plan as documented. SUBJECTIVE: no fever or chills , has mild abd pain in lower abd today . ate all her food . no N/V . has sore throat OBJECTIVE: NAD , HEENT : nl oropharynx with MMM. no exudate . L anterior jugular chain enlarged Lymph node ( 0.5 cm ) CV : RRR, 2/6 SM at LUSB Lungs : CTAB ext : no edema Abd ;soft, minimal TTP in lower abd , no rebound tenderness or guarding , NL BS ASSESSMENT AND PLAN: 40 y/o lady with mild MR, schizoaffective DO , and seizures who presented with abd pain 1- Possible gastritis : cont zantac 2-sore throat : possible URI . no fever or chills, no exudate . will monitor 3- Schizoaffective disorder : continue buspirone and risperidone 4- Seizure do : cont valproic acid dispo : pending placement.
--- NOTE | 2016-07-01 19:00 | CON.PSY ---
Psychiatry Consult Chief Complaint: I am being a pest. Symptoms: reports: Memory Impairment, Learning Problems - Previous Psychiatric Treatment Outpatient: None, Less than 6 mos ago Inpatient: None - Previous Substance Abuse Treatment Outpatient: None Inpatient: None - Reason for Previous Treatment Reason for Previous Treatment: Mental Retardation - Family History Family History: Unremarkable - Current Medications Current Medications: Active Medications Buspirone HCl (Buspar -) 10 mg PO TID [facility] Last Admin: 07/01/16 13:19 Dose: 10 mg Divalproex Sodium (Depakote *Er* -) 250 mg PO BID [facility] Last Admin: 07/01/16 09:45 Dose: 250 mg Enoxaparin Sodium (Lovenox -) 40 mg SQ DAILY [facility] Last Admin: 07/01/16 09:46 Dose: Not Given Levetiracetam (Keppra -) 250 mg PO BID [facility] Last Admin: 07/01/16 09:45 Dose: 250 mg Meclizine HCl (Antivert -) 12.5 mg PO TID [facility] Last Admin: 07/01/16 13:19 Dose: 12.5 mg Ranitidine HCl (Zantac -) 150 mg PO BID [facility] Last Admin: 07/01/16 09:45 Dose: 150 mg Risperidone (Risperdal -) 0.5 mg PO TID [facility] Last Admin: 07/01/16 13:19 Dose: 0.5 mg - Allergies Allergies: Allergies Allergy/AdvReac Type Severity Reaction Status Date / Time Sulfa (Sulfonamide Allergy Verified 06/23/16 17:09 Antibiotics) - Current Living Status Usual Living Arrangement: With Significant Other - Current Mental Status Evaluation Appearance: Disheveled Attitude: Cooperative - Affect Affect: Constrictive Appropriateness: Not Appropriate - Mood Mood: Euthymic - Speech/Language Expressive: Delayed - Psychomotor Activity Psychomotor Activity: Slowed - Thought Process Thought Process: Circumstantial - Thought Content Hallucinations: Absent Delusions: Absent - Self Perception Self Perception: No Impairment - Cognition Attention: Alert Orientation: Time Memory, Immediate Recall: Impaired Memory, Short Term: 1/3 Memory, Remote with Promptin/3 - Concentration Serial Sevens Intact: No Simple Calculations Intact: No - Abstraction Proverb Interpretation: Impaired Judgement: Moderately Impaired - Insight Insight: Impaired - Impulse Control Impulse Control: Minimally Impaired - Suicidal Ideation Suicidal Ideation: No - Homicidal Ideation Homicidal Ideation: No Assessment/Plan 1) Continue with currant psych meds. 2) Patient lacks functional capacity to make any decisions at this time about her care.
[2016-07-02] MEDS: busPIRone HCL 10 MG TABLET (FP) PO SCH ×3 (06:05→21:08)
[2016-07-02] MEDS: risperiDONE 0.5 MG TABLET (FP) PO SCH ×3 (06:05→21:08)
[2016-07-02] MEDS: MECLIZINE HCL 12.5 MG TABLET PO SCH ×3 (06:06→21:08)
[2016-07-02] MEDS ORDERED: PT OWN MED DRAWER 7, Y5N ONE ×3 (09:21→20:59)
[2016-07-02] MEDS: RANITIDINE HCL 150 MG TABLET (FP) PO SCH ×2 (09:22→21:08)
[2016-07-02] MEDS: levETIRAcetam 250 MG TABLET (FP) PO SCH ×2 (09:22→21:08)
[2016-07-02] MEDS: DIVALPROEX NA *ER* EXTEND REL 250 MG TABLET.SA PO SCH ×2 (09:22→21:57)
[2016-07-02] MEDS: ENOXAPARIN NA (PORCINE) 40 MG/0.4 ML DISP.SYRIN SQ SCH (09:23)
--- NOTE | 2016-07-02 12:19 | PN ---
Physical Exam: SUBJECTIVE: Patient seen and examined at bedside denies abdominal pain denies sore throat OBJECTIVE: Vital Signs Period Temp Pulse Resp BP Sys/Hylton Pulse Ox Last 24 Hr 97.8 F-97.9 F 63-96 20-20 106-125/46-70 GENERAL: The patient is awake and alert ENT: moist mucous membranes. no throat redness or purulence. enlarged lymph node previously appreciated is not appreciated at this time NECK: Trachea midline, full range of motion, supple. LUNGS: Breath sounds equal, clear to auscultation bilaterally HEART: Regular rate and rhythm, S1, S2 ABDOMEN: Soft, nontender, nondistended, normoactive bowel sounds EXTREMITIES: warm, well-perfused Active Medications Generic Name Dose Route Start Last Admin Trade Name Freq PRN Reason Stop Dose Admin Buspirone HCl 10 mg 06/24/16 06:00 07/02/16 06:05 Buspar - PO 10 mg TID DARIAN Administration Divalproex Sodium 250 mg 06/24/16 10:00 07/02/16 09:22 Depakote *Er* - PO 250 mg BID DARIAN Administration Enoxaparin Sodium 40 mg 06/25/16 10:00 07/02/16 09:23 Lovenox - SQ Not Given DAILY DARIAN Levetiracetam 250 mg 06/23/16 22:00 07/02/16 09:22 Keppra - PO 250 mg BID DARIAN Administration Meclizine HCl 12.5 mg 06/24/16 06:00 07/02/16 06:06 Antivert - PO 12.5 mg TID DARIAN Administration Ranitidine HCl 150 mg 06/25/16 22:00 07/02/16 09:22 Zantac - PO 150 mg BID DARIAN Administration Risperidone 0.5 mg 06/23/16 22:00 07/02/16 06:05 Risperdal - PO 0.5 mg TID DARIAN Administration ASSESSMENT/PLAN: 40F schizoaffective disorder, vertigo, seizures, mental retardation presents to ER due to displacement from home. Abdominal pain:states she gets it after meals mostly possible from gastritis continue to improve continue zantac Sore throat: probably viral pharyngitis resolved SUPA on possible CKD patient does not have acute kidney injury as her chart was reviewed and it seems her baseline Cr is 1.1 Cr now 1.0 History of seizures continue keppra 500 mg po bid, depakote er 250 mg po bid Schizoaffective disorder continue buspirone 10 mg po tid, risperidone 0.5 mg po tid hx of veritgo continue meclizine 12.5 mg po tid PPx: Lovenox/SCDs/Ambulate [facility] no PT consult needed FEN No IVF No electrolyte issues regular diet 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 patient can not take care of herself and her grandmother who takes care of her is currently in [facility]. SW looking for options for placement. still unsuccessful at this time Visit type - Emergency Visit Emergency Visit: Yes ED Registration Date: 06/24/16 Care time: The patient presented to the Emergency Department on the above date and was hospitalized for further evaluation of their emergent condition. - New Patient This patient is new to me today: No - Critical Care Critical Care patient: No
--- NOTE | 2016-07-02 17:16 | PN ---
Teaching Attending Note Name of Resident: Kenroy Cleveland ATTENDING PHYSICIAN STATEMENT I saw and evaluated the patient. I reviewed the resident's note and discussed the case with the resident. I agree with the resident's findings and plan as documented. SUBJECTIVE: no fever or chills, abd pain has improved . sore throat has resolved OBJECTIVE: NAD CV : RRR, 2/6 SM at LUSB Lungs : CTAB ext : no edema Abd ;soft, minimal TTP in lower abd , no rebound tenderness or guarding , NL BS ASSESSMENT AND PLAN: 40 y/o lady with mild MR, schizoaffective DO , and seizures who presented with abd pain 1- Possible gastritis : cont zantac 2-sore throat : possible URI . no fever or chills. has resolved 3- Schizoaffective disorder : continue buspirone and risperidone seen by psych . 4- Seizure do : cont valproic acid dispo : pending placement.
[2016-07-03] MEDS ORDERED: PT OWN MED DRAWER 7, Y5N ONE ×4 (06:04→21:12)
[2016-07-03] MEDS: busPIRone HCL 10 MG TABLET (FP) PO SCH ×3 (06:11→21:23)
[2016-07-03] MEDS: MECLIZINE HCL 12.5 MG TABLET PO SCH ×3 (06:11→21:23)
[2016-07-03] MEDS: risperiDONE 0.5 MG TABLET (FP) PO SCH ×3 (06:11→21:55)
[2016-07-03] MEDS: RANITIDINE HCL 150 MG TABLET (FP) PO SCH ×2 (09:19→21:23)
[2016-07-03] MEDS: levETIRAcetam 250 MG TABLET (FP) PO SCH ×2 (09:19→21:23)
[2016-07-03] MEDS: DIVALPROEX NA *ER* EXTEND REL 250 MG TABLET.SA PO SCH ×2 (09:19→21:23)
[2016-07-03] MEDS: ENOXAPARIN NA (PORCINE) 40 MG/0.4 ML DISP.SYRIN SQ SCH (09:20)
--- NOTE | 2016-07-03 10:58 | PN ---
Physical Exam: SUBJECTIVE: Patient seen and examined no complaints no events overnight awaiting placement OBJECTIVE: Vital Signs Period Temp Pulse Resp BP Sys/Hylton Pulse Ox Last 24 Hr 97.6 F-98.4 F 74-87 20-20 108-128/45-71 GENERAL: The patient is awake and alert ENT: moist mucous membranes. no throat redness or purulence appreciated at this time NECK: Trachea midline, full range of motion, supple. LUNGS: Breath sounds equal, clear to auscultation bilaterally HEART: Regular rate and rhythm, S1, S2 ABDOMEN: Soft, nontender, nondistended, normoactive bowel sounds EXTREMITIES: warm, well-perfused Active Medications Generic Name Dose Route Start Last Admin Trade Name Freq PRN Reason Stop Dose Admin Buspirone HCl 10 mg 06/24/16 06:00 07/03/16 06:11 Buspar - PO 10 mg TID DARIAN Administration Divalproex Sodium 250 mg 06/24/16 10:00 07/03/16 09:19 Depakote *Er* - PO 250 mg BID DARIAN Administration Enoxaparin Sodium 40 mg 06/25/16 10:00 07/03/16 09:20 Lovenox - SQ Not Given DAILY DARIAN Levetiracetam 250 mg 06/23/16 22:00 07/03/16 09:19 Keppra - PO 250 mg BID DARIAN Administration Meclizine HCl 12.5 mg 06/24/16 06:00 07/03/16 06:11 Antivert - PO 12.5 mg TID DARIAN Administration Ranitidine HCl 150 mg 06/25/16 22:00 07/03/16 09:19 Zantac - PO 150 mg BID DARIAN Administration Risperidone 0.5 mg 06/23/16 22:00 07/03/16 06:11 Risperdal - PO 0.5 mg TID DARIAN Administration ASSESSMENT/PLAN: 40F schizoaffective disorder, vertigo, seizures, mental retardation presents to ER due to displacement from home. Abdominal pain:states she gets it after meals mostly gastritis continue to improve continue zantac Sore throat: probably viral pharyngitis resolved SUPA on possible CKD patient does not have acute kidney injury as her chart was reviewed and it seems her baseline Cr is 1.1 most recent Cr 1.0 History of seizures continue keppra 500 mg po bid, depakote er 250 mg po bid Schizoaffective disorder continue buspirone 10 mg po tid, risperidone 0.5 mg po tid hx of veritgo continue meclizine 12.5 mg po tid PPx: Lovenox/SCDs/Ambulate [facility] no PT consult needed FEN No IVF No electrolyte issues regular diet 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 patient can not take care of herself and her grandmother who takes care of her is currently in [facility]. SW looking for options for placement. still unsuccessful at this time Visit type - Emergency Visit Emergency Visit: Yes ED Registration Date: 06/24/16 Care time: The patient presented to the Emergency Department on the above date and was hospitalized for further evaluation of their emergent condition. - New Patient This patient is new to me today: No - Critical Care Critical Care patient: No
--- NOTE | 2016-07-03 12:20 | PN ---
Teaching Attending Note Name of Resident: Kenroy Cleveland ATTENDING PHYSICIAN STATEMENT I saw and evaluated the patient. I reviewed the resident's note and discussed the case with the resident. I agree with the resident's findings and plan as documented. Patient is comfortable with no acute distress. No fever or chills. Vital Signs Temperature 98.4 F 07/03/16 06:00 Pulse Rate 82 07/03/16 10:00 Respiratory Rate 20 07/03/16 10:00 Blood Pressure 124/71 07/03/16 10:00 O2 Sat by Pulse Oximetry (%) 98 06/30/16 20:15 CBCD WBC 5.9 K/mm3 (4.0-10.0) 06/23/16 18:30 RBC 4.26 M/mm3 (3.60-5.2) 06/23/16 18:30 Hgb 11.6 GM/dL (10.7-15.3) 06/23/16 18:30 Hct 35.4 % (32.4-45.2) 06/23/16 18:30 MCV 83.1 fl (80-96) 06/23/16 18:30 MCHC 32.7 g/dl (32.0-36.0) 06/23/16 18:30 RDW 13.3 % (11.6-15.6) 06/23/16 18:30 Plt Count 185 K/MM3 (134-434) 06/23/16 18:30 MPV 8.5 fl (7.5-11.1) 06/23/16 18:30 CMP Sodium 140 mmol/L (136-145) 06/26/16 09:50 Potassium 3.7 mmol/L (3.5-5.1) 06/26/16 09:50 Chloride 106 mmol/L (98-107) 06/26/16 09:50 Carbon Dioxide 26 mmol/L (21-32) 06/26/16 09:50 Anion Gap 8 (8-16) 06/26/16 09:50 BUN 10 mg/dL (7-18) 06/26/16 09:50 Creatinine 1.0 mg/dL (0.55-1.02) 06/26/16 09:50 Creat Clearance w eGFR 55.30 (>60) 06/23/16 18:30 Random Glucose 100 mg/dL (74-106) 06/26/16 09:50 Calcium 8.1 mg/dL (8.5-10.1) L 06/26/16 09:50 Total Bilirubin 0.3 mg/dL (0.2-1.0) 06/23/16 18:30 AST 15 U/L (15-37) 06/23/16 18:30 ALT 18 U/L (12-78) 06/23/16 18:30 Alkaline Phosphatase 65 U/L (45-117) 06/23/16 18:30 Total Protein 8.1 g/dl (6.4-8.2) 06/23/16 18:30 Albumin 3.9 g/dl (3.4-5.0) 06/23/16 18:30 Current Medications Generic Name Dose Route Start Last Admin Trade Name Freq PRN Reason Stop Dose Admin Buspirone HCl 10 mg 06/24/16 06:00 07/03/16 06:11 Buspar - PO 10 mg TID DARIAN Administration Divalproex Sodium 250 mg 06/24/16 10:00 07/03/16 09:19 Depakote *Er* - PO 250 mg BID DARIAN Administration Enoxaparin Sodium 40 mg 06/25/16 10:00 07/03/16 09:20 Lovenox - SQ Not Given DAILY [facility] Levetiracetam 250 mg 06/23/16 22:00 07/03/16 09:19 Keppra - PO 250 mg BID DARIAN Administration Meclizine HCl 12.5 mg 06/24/16 06:00 07/03/16 06:11 Antivert - PO 12.5 mg TID DARIAN Administration Ranitidine HCl 150 mg 06/25/16 22:00 07/03/16 09:19 Zantac - PO 150 mg BID DARIAN Administration Risperidone 0.5 mg 06/23/16 22:00 07/03/16 06:11 Risperdal - PO 0.5 mg TID DARIAN Administration Home Medications Medication Instructions Recorded Buspirone HCl [Buspar -] 10 mg PO TID 06/22/16 Divalproex *ER* [Depakote *ER* -] 250 mg PO BID 06/22/16 Famotidine [Pepcid -] 20 mg PO DAILY #30 tablet 06/22/16 Meclizine HCl [Antivert -] 12.5 mg PO TID 06/22/16 Ondansetron HCl [Zofran] 4 mg PO BID PRN #10 tablet 06/22/16 Levetiracetam [Keppra] 250 mg PO BID 06/23/16 Risperidone 0.5 mg PO TID 06/23/16 ASSESSMENT AND PLAN: Patient is a 40 y/o lady with mild MR, Schizoaffective Disorder, and seizures who presented with abdominal pain. # Hx of gastritis : cont zantac # Hx of Schizoaffective disorder : continue buspirone and risperidone continue , seen by psych . # Hx of Seizure disorder : cont valproic acid dispo : pending placement
[2016-07-04] MEDS ORDERED: PT OWN MED DRAWER 7, Y5N ONE ×3 (05:50→13:30)
[2016-07-04] MEDS: busPIRone HCL 10 MG TABLET (FP) PO SCH ×3 (06:16→22:41)
[2016-07-04] MEDS: MECLIZINE HCL 12.5 MG TABLET PO SCH ×3 (06:16→22:40)
[2016-07-04] MEDS: risperiDONE 0.5 MG TABLET (FP) PO SCH ×3 (06:16→22:41)
[2016-07-04] MEDS: levETIRAcetam 250 MG TABLET (FP) PO SCH ×2 (10:39→22:42)
[2016-07-04] MEDS: ENOXAPARIN NA (PORCINE) 40 MG/0.4 ML DISP.SYRIN SQ SCH (10:39)
[2016-07-04] MEDS: RANITIDINE HCL 150 MG TABLET (FP) PO SCH ×2 (10:39→22:41)
[2016-07-04] MEDS: DIVALPROEX NA *ER* EXTEND REL 250 MG TABLET.SA PO SCH ×2 (10:39→22:41)
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
[2016-07-05] MEDS: MECLIZINE HCL 12.5 MG TABLET PO SCH ×3 (06:06→21:41)
[2016-07-05] MEDS: risperiDONE 0.5 MG TABLET (FP) PO SCH ×3 (06:06→21:41)
[2016-07-05] MEDS: busPIRone HCL 10 MG TABLET (FP) PO SCH ×3 (06:06→21:41)
[2016-07-05] MEDS ORDERED: PT OWN MED DRAWER 7, Y5N ONE ×2 (09:38→15:11)
[2016-07-05] MEDS: RANITIDINE HCL 150 MG TABLET (FP) PO SCH ×2 (09:39→21:41)
[2016-07-05] MEDS: DIVALPROEX NA *ER* EXTEND REL 250 MG TABLET.SA PO SCH ×2 (09:39→21:41)
[2016-07-05] MEDS: ENOXAPARIN NA (PORCINE) 40 MG/0.4 ML DISP.SYRIN SQ SCH (09:39)
[2016-07-05] MEDS: levETIRAcetam 250 MG TABLET (FP) PO SCH ×2 (09:39→21:41)
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
--- NOTE | 2016-07-05 17:59 | CON.PSL ---
Psychology Consult Consult Specialty:: Clinical Psychology Reason for Consultation:: The patient was asked to be seen for a current intellectual functioning assessment. She has a history of imited intellectual ability, schizoaffective disorder and is said to be unable to live by herself. History Provided By: Patient, Medical Record Limitations to Obtaining History: No Limitations Current Medications: Active Medications Buspirone HCl (Buspar -) 10 mg PO TID [facility] Last Admin: 07/05/16 15:21 Dose: 10 mg Divalproex Sodium (Depakote *Er* -) 250 mg PO BID [facility] Last Admin: 07/05/16 09:39 Dose: 250 mg Enoxaparin Sodium (Lovenox -) 40 mg SQ DAILY [facility] Last Admin: 07/05/16 09:39 Dose: 40 mg Levetiracetam (Keppra -) 250 mg PO BID [facility] Last Admin: 07/05/16 09:39 Dose: 250 mg Meclizine HCl (Antivert -) 12.5 mg PO TID [facility] Last Admin: 07/05/16 15:21 Dose: 12.5 mg Ranitidine HCl (Zantac -) 150 mg PO BID [facility] Last Admin: 07/05/16 09:39 Dose: 150 mg Risperidone (Risperdal -) 0.5 mg PO TID [facility] Last Admin: 07/05/16 15:21 Dose: 0.5 mg Allergies: Allergies Allergy/AdvReac Type Severity Reaction Status Date / Time grapefruit Allergy Verified 07/04/16 12:10 Sulfa (Sulfonamide Allergy Verified 06/23/16 17:09 Antibiotics) Does patient have pain?: Yes Pain Location Body Site: Shoulder (Pain is said to be present in both her right and left shoulder. She indicated that the pain becomes more severe when she pinches those areas.) Pain Description: Non-Descriptive Pain Intensity: 10 Hx Alcohol Use: No Hx Substance Use: No Hx Substance Use Treatment: No (There is a positive history of substance abuse in two siblings.) - Family History Family History: Denies (At first she denied any significant history but shared that a brother and sister are substance abusers. Her mother is also a substance abuser. Her father was murdered when the patient was about [age] years old.) Current Medical Exam-Psy Attention: Alert (She denies anxiety.) Orientation: Time, Person, Place Immediate Term Memory: 3 Expressive: Coherent Receptive: Age Appropriate Comprehension of Spoken Words Hallucinations: Absent Thought Process: Other (She appeared to communicate in a coherent manner. The patient shared that she has a fiance who lives in [place] and commutes to [place] to be with her. If this is true, her thought process seems to be intact. ) Depression: None (Although she denied depression, she admitted to feeling sad that her roomate in her hospital room will be discharged.) Hopelessness: No Loss of Interest: No Danger to Self and Others: No Sleep: Well Appetite: Good (When the patient awakes at night she is able to fall back to sleep without difficulty.) Serial Sevens Intact: No (She was unable to spell WORLD backward as well.) Repeats 3 words told earlier: 0/3 Support System: Significant Other (Her grandmother was a support for her but she is now in a senior care and unable to be her care manager. If the patient indeed has a fiance, he would be a support system.) Leisure activities: With friends Problem List - Problem (1) Mental retardation Code(s): F79 - UNSPECIFIED INTELLECTUAL DISABILITIES (2) Schizoaffective disorder Code(s): F25.9 - SCHIZOAFFECTIVE DISORDER, UNSPECIFIED Qualifiers: Schizoaffective disorder type: unspecified Qualified Code(s): F25.9 - Schizoaffective disorder, unspecified Assessment/Plan Based on the need to arrange proper continuation of care, this patient will be given a psychological test of intelligence. The results will identify her cognitive strengths and weaknesses. In addition, if her results demonstrate limited intellectual ability, appropriate arrangements for continuation of care will be made. Thank you for the opportunity to evaluate this adeel young lady.
[2016-07-06] MEDS: risperiDONE 0.5 MG TABLET (FP) PO SCH ×3 (06:27→21:44)
[2016-07-06] MEDS: MECLIZINE HCL 12.5 MG TABLET PO SCH ×3 (06:27→22:55)
[2016-07-06] MEDS: busPIRone HCL 10 MG TABLET (FP) PO SCH ×3 (06:27→21:45)
[2016-07-06] MEDS ORDERED: PT OWN MED DRAWER 7, Y5N ONE (09:05)
[2016-07-06] MEDS: DIVALPROEX NA *ER* EXTEND REL 250 MG TABLET.SA PO SCH ×2 (09:06→21:44)
[2016-07-06] MEDS: ENOXAPARIN NA (PORCINE) 40 MG/0.4 ML DISP.SYRIN SQ SCH (09:06)
[2016-07-06] MEDS: levETIRAcetam 250 MG TABLET (FP) PO SCH ×2 (09:06→21:44)
[2016-07-06] MEDS: RANITIDINE HCL 150 MG TABLET (FP) PO SCH ×2 (09:06→21:44)
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
--- NOTE | 2016-07-06 11:29 | PN ---
Progress Note (short form) - Note Progress Note: Ms. Venice Corea was administered the WAIS IV IQ Test. She was alert and cooperative throughout the evaluation. However, she easily would give up and she required prompting and encouragement to continue with the test items. Her Verbal Comprehension Index was 61 placing her at the .5%ile rank Her Performance Index was 54 placing her at the .1%ile rank. Her Working Memory Index was 60 placing her at the .4 %ile rank. Her Processing Speed Index was 50 placing her at the <0.1%ile rank. Her Full Scale IQ was 50 placing her at the <0.1 %ile rank. These results suggest that this patient falls within the Low Intellectual Level. Therefore, this patient's results may be interpreted as those of a person who is exhibiting cognitive weaknesses that would interfere with her ability to reason similar to an unimpaired adult of her age and make appropriate judgment decisions based on information provided to her or experiences she encounters. Based on these results Ms. Corea is in need of supervised care. Armani Drake Psy.D., N, [facility] Lic. [id number] Clinical Psychologist Neuropsychologist Problem List - Problems (1) Mental retardation Code(s): F79 - UNSPECIFIED INTELLECTUAL DISABILITIES (2) Schizoaffective disorder Code(s): F25.9 - SCHIZOAFFECTIVE DISORDER, UNSPECIFIED Qualifiers: Schizoaffective disorder type: unspecified Qualified Code(s): F25.9 - Schizoaffective disorder, unspecified
[2016-07-07] MEDS: busPIRone HCL 10 MG TABLET (FP) PO SCH ×3 (06:42→21:14)
[2016-07-07] MEDS: MECLIZINE HCL 12.5 MG TABLET PO SCH ×3 (06:42→21:16)
[2016-07-07] MEDS: risperiDONE 0.5 MG TABLET (FP) PO SCH ×3 (06:42→21:15)
[2016-07-07] MEDS ORDERED: PT OWN MED DRAWER 7, Y5N ONE ×2 (09:30→20:44)
[2016-07-07] MEDS: levETIRAcetam 250 MG TABLET (FP) PO SCH ×2 (09:52→21:15)
[2016-07-07] MEDS: DIVALPROEX NA *ER* EXTEND REL 250 MG TABLET.SA PO SCH ×2 (09:52→21:47)
[2016-07-07] MEDS: RANITIDINE HCL 150 MG TABLET (FP) PO SCH ×2 (09:52→21:15)
[2016-07-07] MEDS: ENOXAPARIN NA (PORCINE) 40 MG/0.4 ML DISP.SYRIN SQ SCH (09:52)
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
[2016-07-08] MEDS: busPIRone HCL 10 MG TABLET (FP) PO SCH ×3 (05:48→21:10)
[2016-07-08] MEDS: risperiDONE 0.5 MG TABLET (FP) PO SCH ×3 (05:48→21:11)
[2016-07-08] MEDS: MECLIZINE HCL 12.5 MG TABLET PO SCH ×3 (05:48→21:10)
[2016-07-08] MEDS ORDERED: PT OWN MED DRAWER 7, Y5N ONE ×2 (10:23→20:46)
[2016-07-08] MEDS: RANITIDINE HCL 150 MG TABLET (FP) PO SCH ×2 (10:41→21:10)
[2016-07-08] MEDS: DIVALPROEX NA *ER* EXTEND REL 250 MG TABLET.SA PO SCH ×2 (10:41→21:39)
[2016-07-08] MEDS: levETIRAcetam 250 MG TABLET (FP) PO SCH ×2 (10:41→21:10)
[2016-07-08] MEDS: ACETAMINOPHEN 325 MG TABLET (FP) PO PRN (13:08)
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
[2016-07-09] MEDS: MECLIZINE HCL 12.5 MG TABLET PO SCH ×3 (05:42→21:27)
[2016-07-09] MEDS: busPIRone HCL 10 MG TABLET (FP) PO SCH ×3 (05:42→21:27)
[2016-07-09] MEDS: risperiDONE 0.5 MG TABLET (FP) PO SCH ×3 (05:42→21:27)
[2016-07-09] MEDS: ACETAMINOPHEN 325 MG TABLET (FP) PO PRN (05:44)
[2016-07-09] MEDS ORDERED: PT OWN MED DRAWER 7, Y5N ONE ×2 (10:28→21:25)
[2016-07-09] MEDS: RANITIDINE HCL 150 MG TABLET (FP) PO SCH ×2 (10:30→21:27)
[2016-07-09] MEDS: DIVALPROEX NA *ER* EXTEND REL 250 MG TABLET.SA PO SCH ×2 (10:30→21:27)
[2016-07-09] MEDS: levETIRAcetam 250 MG TABLET (FP) PO SCH ×2 (10:30→21:27)
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
[2016-07-10] MEDS: risperiDONE 0.5 MG TABLET (FP) PO SCH ×3 (05:57→21:28)
[2016-07-10] MEDS: busPIRone HCL 10 MG TABLET (FP) PO SCH ×3 (05:57→21:28)
[2016-07-10] MEDS: MECLIZINE HCL 12.5 MG TABLET PO SCH ×3 (05:58→21:28)
[2016-07-10] MEDS ORDERED: PT OWN MED DRAWER 7, Y5N ONE ×2 (09:23→13:30)
[2016-07-10] MEDS: RANITIDINE HCL 150 MG TABLET (FP) PO SCH ×2 (09:30→21:28)
[2016-07-10] MEDS: levETIRAcetam 250 MG TABLET (FP) PO SCH ×2 (09:30→21:28)
[2016-07-10] MEDS: DIVALPROEX NA *ER* EXTEND REL 250 MG TABLET.SA PO SCH ×2 (09:30→21:29)
[2016-07-10] MEDS ORDERED: TUBERCULIN PPD 5 TU/0.1ML SYRINGE (IN PATIENT USE ONLY) ID ONE (15:00)
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
--- NOTE | 2016-07-10 17:59 | PN ---
Teaching Attending Note Name of Resident: Kenroy Cleveland ATTENDING PHYSICIAN STATEMENT I saw and evaluated the patient. I reviewed the resident's note and discussed the case with the resident. I agree with the resident's findings and plan as documented. SUBJECTIVE: reported seeing blood from R nipple today. OBJECTIVE: NAD CV : RRR, 2/6 SM at LUSB Lungs : CTAB Ext : no edema Abd ;soft, no TTP Breast exam : no masses in breasts , no LAP in axillary area, no discharge frm nipples and no skin abnormality over nipple or areolae ASSESSMENT AND PLAN: 40 y/o lady with mild MR, schizoaffective DO , and seizures who presented with abd pain 1-ABd pain , resolved . 2- possible breast bleed. no masses on exam, and no LAP , and no skin changes over areolae or nipples. f/u as out pt with mammo/US 3- Schizoaffective disorder : continue buspirone and risperidone seen by psych . 4- Seizure do : cont valproic acid dispo : pending placement.
[2016-07-11] MEDS: busPIRone HCL 10 MG TABLET (FP) PO SCH ×3 (05:45→22:07)
[2016-07-11] MEDS: risperiDONE 0.5 MG TABLET (FP) PO SCH ×3 (05:45→22:07)
[2016-07-11] MEDS: MECLIZINE HCL 12.5 MG TABLET PO SCH ×3 (05:45→22:07)
[2016-07-11] MEDS ORDERED: PT OWN MED DRAWER 7, Y5N ONE (10:07)
[2016-07-11] MEDS: RANITIDINE HCL 150 MG TABLET (FP) PO SCH ×2 (10:12→22:07)
[2016-07-11] MEDS: levETIRAcetam 250 MG TABLET (FP) PO SCH ×2 (10:12→22:07)
[2016-07-11] MEDS: DIVALPROEX NA *ER* EXTEND REL 250 MG TABLET.SA PO SCH ×2 (10:13→22:07)
--- NOTE | 2016-07-11 15:55 | PN ---
Physical Exam: SUBJECTIVE: Patient seen and examined at bedside no complaints OBJECTIVE: Vital Signs Period Temp Pulse Resp BP Sys/Hylton Pulse Ox Last 24 Hr 97.4 F-98.1 F 94-101 20-22 117-122/58-78 100 GENERAL: The patient is awake and alert ENT: moist mucous membranes. no throat redness or purulence NECK: Trachea midline, full range of motion, supple. LUNGS: Breath sounds equal, clear to auscultation bilaterally HEART: Regular rate and rhythm, S1, S2 ABDOMEN: Soft, nontender, nondistended, normoactive bowel sounds EXTREMITIES: warm, well-perfused Active Medications Generic Name Dose Route Start Last Admin Trade Name Freq PRN Reason Stop Dose Admin Acetaminophen 650 mg 07/08/16 12:40 07/09/16 05:44 Tylenol - PO 650 mg Q4H PRN Administration FEVER OR PAIN Buspirone HCl 10 mg 06/24/16 06:00 07/11/16 14:46 Buspar - PO 10 mg TID DARIAN Administration Divalproex Sodium 250 mg 06/24/16 10:00 07/11/16 10:13 Depakote *Er* - PO 250 mg BID DARIAN Administration Levetiracetam 250 mg 06/23/16 22:00 07/11/16 10:12 Keppra - PO 250 mg BID DARIAN Administration Meclizine HCl 12.5 mg 06/24/16 06:00 07/11/16 14:46 Antivert - PO 12.5 mg TID DARIAN Administration Ranitidine HCl 150 mg 06/25/16 22:00 07/11/16 10:12 Zantac - PO 150 mg BID DARIAN Administration Risperidone 0.5 mg 06/23/16 22:00 07/11/16 14:46 Risperdal - PO 0.5 mg TID DARIAN Administration ASSESSMENT/PLAN: 40F schizoaffective disorder, vertigo, seizures, mental retardation presents to ER due to displacement from home. Abdominal pain:states she gets it after meals mostly gastritis symptoms Resolved continue zantac Sore throat: probably viral pharyngitis resolved SUPA on possible CKD patient does not have acute kidney injury as her chart was reviewed and it seems her baseline Cr is 1.1 most recent Cr 1.0 History of seizures continue keppra 500 mg po bid, depakote er 250 mg po bid Schizoaffective disorder continue buspirone 10 mg po tid, risperidone 0.5 mg po tid hx of veritgo continue meclizine 12.5 mg po tid Breast bleeding: patient states she bleeds from her right breast every couple of weeks examined by attending and there were no abnormal findings will send for outpatient follow up with PMD and mammogram PPx: Lovenox/SCDs/Ambulate Zanatc no PT consult needed FEN No IVF No electrolyte issues regular diet Dispo: 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 - New Patient This patient is new to me today: No - Critical Care Critical Care patient: No - Discharge Referral Referred to [facility] Med P.C[facility] No
--- NOTE | 2016-07-11 18:54 | PN ---
Teaching Attending Note Name of Resident: Kenroy Cleveland ATTENDING PHYSICIAN STATEMENT I saw and evaluated the patient. I reviewed the resident's note and discussed the case with the resident. I agree with the resident's findings and plan as documented. SUBJECTIVE: no complaints today . no events over night OBJECTIVE: NAD CV : RRR, 2/6 SM at LUSB Lungs : CTAB Ext : no edema Abd; soft, no TTP ASSESSMENT AND PLAN: 40 y/o lady with mild MR, schizoaffective DO , and seizures who presented with abd pain 1-ABd pain , resolved . 2- Schizoaffective disorder : continue buspirone and risperidone seen by psych . 3 -Seizure do : cont valproic acid dispo : pending placement.
[2016-07-12] MEDS: busPIRone HCL 10 MG TABLET (FP) PO SCH ×3 (06:23→21:39)
[2016-07-12] MEDS: MECLIZINE HCL 12.5 MG TABLET PO SCH ×3 (06:23→21:40)
[2016-07-12] MEDS: risperiDONE 0.5 MG TABLET (FP) PO SCH ×3 (06:23→21:39)
[2016-07-12] MEDS ORDERED: PT OWN MED DRAWER 7, Y5N ONE ×3 (10:04→21:34)
[2016-07-12] MEDS: levETIRAcetam 250 MG TABLET (FP) PO SCH ×2 (10:06→21:39)
[2016-07-12] MEDS: DIVALPROEX NA *ER* EXTEND REL 250 MG TABLET.SA PO SCH ×2 (10:06→21:39)
[2016-07-12] MEDS: RANITIDINE HCL 150 MG TABLET (FP) PO SCH ×2 (10:06→21:39)
[2016-07-12] MEDS ORDERED: TUBERCULIN PPD 5 TU/0.1ML SYRINGE (IN PATIENT USE ONLY) ID ONE (11:00)
--- NOTE | 2016-07-12 13:18 | PN ---
Physical Exam: SUBJECTIVE: Patient seen and examined at bedside no complaints no events overnight wants to go home OBJECTIVE: Vital Signs Period Temp Pulse Resp BP Sys/Hylton Pulse Ox Last 24 Hr 97.4 F-98.2 F 84-100 18-22 118-123/63-76 100-100 GENERAL: The patient is awake and alert ENT: moist mucous membranes. no throat redness or purulence NECK: Trachea midline, full range of motion, supple. LUNGS: Breath sounds equal, clear to auscultation bilaterally HEART: Regular rate and rhythm, S1, S2 ABDOMEN: Soft, nontender, nondistended, normoactive bowel sounds EXTREMITIES: warm, well-perfused Active Medications Generic Name Dose Route Start Last Admin Trade Name Freq PRN Reason Stop Dose Admin Acetaminophen 650 mg 07/08/16 12:40 07/09/16 05:44 Tylenol - PO 650 mg Q4H PRN Administration FEVER OR PAIN Buspirone HCl 10 mg 06/24/16 06:00 07/12/16 06:23 Buspar - PO 10 mg TID DARIAN Administration Divalproex Sodium 250 mg 06/24/16 10:00 07/12/16 10:06 Depakote *Er* - PO 250 mg BID DARIAN Administration Levetiracetam 250 mg 06/23/16 22:00 07/12/16 10:06 Keppra - PO 250 mg BID DARIAN Administration Meclizine HCl 12.5 mg 06/24/16 06:00 07/12/16 06:23 Antivert - PO 12.5 mg TID DARIAN Administration Ranitidine HCl 150 mg 06/25/16 22:00 07/12/16 10:06 Zantac - PO 150 mg BID DARIAN Administration Risperidone 0.5 mg 06/23/16 22:00 07/12/16 06:23 Risperdal - PO 0.5 mg TID DARIAN Administration ASSESSMENT/PLAN: 40F schizoaffective disorder, vertigo, seizures, mental retardation presents to ER due to displacement from home. Abdominal pain:states she gets it after meals mostly gastritis symptoms Resolved continue zantac Sore throat: probably viral pharyngitis resolved SUPA on possible CKD patient does not have acute kidney injury as her chart was reviewed and it seems her baseline Cr is 1.1 most recent Cr 1.0 History of seizures continue keppra 500 mg po bid, depakote er 250 mg po bid Schizoaffective disorder continue buspirone 10 mg po tid, risperidone 0.5 mg po tid hx of veritgo continue meclizine 12.5 mg po tid Breast bleeding: patient states she bleeds from her right breast every couple of weeks examined by attending and there were no abnormal findings will send for outpatient follow up with PMD and mammogram PPx: Lovenox/SCDs/Ambulate Zanatc no PT consult needed FEN No IVF No electrolyte issues regular diet Dispo: 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 - New Patient This patient is new to me today: No - Critical Care Critical Care patient: No - Discharge Referral Referred to [facility] Med [facility].C[facility] Yes Physician Referral: Winston Coffey MD ([facility])
--- NOTE | 2016-07-12 17:55 | PN ---
Teaching Attending Note Name of Resident: Kenroy Cleveland ATTENDING PHYSICIAN STATEMENT I saw and evaluated the patient. I reviewed the resident's note and discussed the case with the resident. I agree with the resident's findings and plan as documented. SUBJECTIVE: no fever or chills OBJECTIVE: NAD CV : RRR, 2/6 SM at LUSB Lungs : CTAB Ext : no edema Abd; soft, no TTP ASSESSMENT AND PLAN: 40 y/o lady with mild MR, schizoaffective DO , and seizures who presented with abd pain 1- ABd pain , resolved . 2- Schizoaffective disorder : continue buspirone and risperidone seen by psych . 3-Seizure do : cont valproic acid dispo : pending placement.
[2016-07-13] MEDS: risperiDONE 0.5 MG TABLET (FP) PO SCH ×3 (06:25→21:13)
[2016-07-13] MEDS: MECLIZINE HCL 12.5 MG TABLET PO SCH ×3 (06:25→21:12)
[2016-07-13] MEDS: busPIRone HCL 10 MG TABLET (FP) PO SCH ×3 (06:25→21:13)
[2016-07-13] MEDS ORDERED: PT OWN MED DRAWER 7, Y5N ONE ×3 (09:25→21:10)
[2016-07-13] MEDS: RANITIDINE HCL 150 MG TABLET (FP) PO SCH ×2 (09:27→21:12)
[2016-07-13] MEDS: levETIRAcetam 250 MG TABLET (FP) PO SCH ×2 (09:27→21:12)
[2016-07-13] MEDS: DIVALPROEX NA *ER* EXTEND REL 250 MG TABLET.SA PO SCH ×2 (09:27→21:13)
--- NOTE | 2016-07-13 14:00 | PN ---
Progress Note (short form) - Note Progress Note: Subjective: has burning sensation on her inner buttock cheeks that started this am Objective: Vital Signs: Last Vital Signs Temp Pulse Resp BP Pulse Ox 97.8 F 106 H 20 140/92 100 07/13/16 13:28 07/13/16 13:28 07/13/16 13:28 07/13/16 13:28 07/13/16 09:00 NAD CV : RRR, 2/6 SM at LUSB Lungs : CTAB ext : no edema Abd ;soft, NT, NL BS /rectal : nl hair distribution, no erythema or discharge in perineal area, no erythema over skin on alfreda-anal area. no rash ASSESSMENT AND PLAN: 40 y/o lady with mild MR, schizoaffective DO , and seizures who presented with abd pain 1- ABd pain , resolved . 2- Schizoaffective disorder : continue buspirone and risperidone seen by psych . 3-Seizure do : cont valproic acid 4- alfreda-anal burning : add zinc oxide topically dispo : pending placement. Visit type - Emergency Visit Emergency Visit: Yes ED Registration Date: 06/24/16 Care time: The patient presented to the Emergency Department on the above date and was hospitalized for further evaluation of their emergent condition. - New Patient This patient is new to me today: No - Critical Care Critical Care patient: No
[2016-07-13] MEDS: ZINC OXIDE 20% TOPICAL OINTMENT 30 GM TUBE TP SCH (22:00)
[2016-07-14] MEDS: MECLIZINE HCL 12.5 MG TABLET PO SCH ×3 (06:17→22:17)
[2016-07-14] MEDS: busPIRone HCL 10 MG TABLET (FP) PO SCH ×3 (06:17→22:17)
[2016-07-14] MEDS: risperiDONE 0.5 MG TABLET (FP) PO SCH ×3 (06:17→22:17)
[2016-07-14] MEDS ORDERED: PT OWN MED DRAWER 7, Y5N ONE ×2 (09:24→14:03)
[2016-07-14] MEDS: DIVALPROEX NA *ER* EXTEND REL 250 MG TABLET.SA PO SCH ×2 (09:26→22:17)
[2016-07-14] MEDS: ZINC OXIDE 20% TOPICAL OINTMENT 30 GM TUBE TP SCH ×3 (09:26→22:18)
[2016-07-14] MEDS: RANITIDINE HCL 150 MG TABLET (FP) PO SCH ×2 (09:26→22:17)
[2016-07-14] MEDS: levETIRAcetam 250 MG TABLET (FP) PO SCH ×2 (09:26→22:17)
--- NOTE | 2016-07-14 15:36 | PN ---
Progress Note (short form) - Note Progress Note: Subjective: no complaints today Objective: Vital Signs: Last Vital Signs Temp Pulse Resp BP Pulse Ox 98.4 F 102 H 22 134/83 100 07/14/16 13:30 07/14/16 13:30 07/14/16 13:30 07/14/16 08:47 07/14/16 09:00 NAD CV : RRR, 2/6 SM at LUSB Lungs : CTAB ext : no edema Abd ;soft, NT, NL BS ASSESSMENT AND PLAN: 40 y/o lady with mild MR, schizoaffective DO , and seizures who presented with abd pain 1- ABd pain , resolved . 2- Schizoaffective disorder : continue buspirone and risperidone 3-Seizure do : cont valproic acid 4- alfreda-anal burning : cont zinc oxide topically dispo : pending placement. Visit type - Emergency Visit Emergency Visit: Yes ED Registration Date: 06/24/16 Care time: The patient presented to the Emergency Department on the above date and was hospitalized for further evaluation of their emergent condition. - New Patient This patient is new to me today: No - Critical Care Critical Care patient: No
[2016-07-15] MEDS ORDERED: PT OWN MED DRAWER 7, Y5N ONE ×2 (06:05→09:30)
[2016-07-15] MEDS: busPIRone HCL 10 MG TABLET (FP) PO SCH ×3 (06:26→21:24)
[2016-07-15] MEDS: risperiDONE 0.5 MG TABLET (FP) PO SCH ×3 (06:26→21:25)
[2016-07-15] MEDS: MECLIZINE HCL 12.5 MG TABLET PO SCH ×3 (06:26→21:24)
[2016-07-15] MEDS: RANITIDINE HCL 150 MG TABLET (FP) PO SCH ×2 (10:41→21:26)
[2016-07-15] MEDS: DIVALPROEX NA *ER* EXTEND REL 250 MG TABLET.SA PO SCH ×2 (10:41→21:25)
[2016-07-15] MEDS: ZINC OXIDE 20% TOPICAL OINTMENT 30 GM TUBE TP SCH ×2 (10:41→21:26)
[2016-07-15] MEDS: levETIRAcetam 250 MG TABLET (FP) PO SCH ×2 (10:41→21:25)
--- NOTE | 2016-07-15 13:55 | PN ---
Physical Exam: SUBJECTIVE: Patient seen and examined at bedside patient is upset she is still here OBJECTIVE: Vital Signs Period Temp Pulse Resp BP Sys/Hylton Pulse Ox Last 24 Hr 97.8 F-98.4 F 93-108 19-20 116-144/65-86 100-100 GENERAL: The patient is awake and alert ENT: moist mucous membranes. NECK: Trachea midline, full range of motion, supple. LUNGS: Breath sounds equal, clear to auscultation bilaterally HEART: Regular rate and rhythm, S1, S2 ABDOMEN: Soft, nontender, nondistended, normoactive bowel sounds EXTREMITIES: warm, well-perfused Active Medications Generic Name Dose Route Start Last Admin Trade Name Freq PRN Reason Stop Dose Admin Acetaminophen 650 mg 07/08/16 12:40 07/09/16 05:44 Tylenol - PO 650 mg Q4H PRN Administration FEVER OR PAIN Buspirone HCl 10 mg 06/24/16 06:00 07/15/16 06:26 Buspar - PO 10 mg TID DARIAN Administration Divalproex Sodium 250 mg 06/24/16 10:00 07/15/16 10:41 Depakote *Er* - PO 250 mg BID DARIAN Administration Levetiracetam 250 mg 06/23/16 22:00 07/15/16 10:41 Keppra - PO 250 mg BID DARIAN Administration Meclizine HCl 12.5 mg 06/24/16 06:00 07/15/16 06:26 Antivert - PO 12.5 mg TID DARIAN Administration Multi-Ingredient Ointment 1 applic 07/13/16 22:00 07/15/16 10:41 Zinc Oxide TP 1 applic BID DARIAN Administration Ranitidine HCl 150 mg 06/25/16 22:00 07/15/16 10:41 Zantac - PO 150 mg BID DARIAN Administration Risperidone 0.5 mg 06/23/16 22:00 07/15/16 06:26 Risperdal - PO 0.5 mg TID DARIAN Administration ASSESSMENT/PLAN: 40F schizoaffective disorder, vertigo, seizures, mental retardation presents to ER due to displacement from home. Abdominal pain:states she gets it after meals mostly gastritis symptoms Resolved continue zantac Sore throat: probably viral pharyngitis resolved SUPA on possible CKD patient does not have acute kidney injury as her chart was reviewed and it seems her baseline Cr is 1.1 most recent Cr 1.0 History of seizures continue keppra 500 mg po bid, depakote er 250 mg po bid Schizoaffective disorder continue buspirone 10 mg po tid, risperidone 0.5 mg po tid hx of veritgo continue meclizine 12.5 mg po tid Breast bleeding: patient states she bleeds from her right breast every couple of weeks currently not active will send for outpatient follow up with PMD and mammogram PPx: Lovenox/SCDs/Ambulate [facility] no PT consult needed FEN No IVF No electrolyte issues regular diet Dispo: 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 - New Patient This patient is new to me today: No - Critical Care Critical Care patient: No - Discharge Referral Referred to [facility] Med P.C.: No
--- NOTE | 2016-07-15 15:04 | PN ---
Teaching Attending Note Name of Resident: Kenroy Cleveland ATTENDING PHYSICIAN STATEMENT I saw and evaluated the patient. I reviewed the resident's note and discussed the case with the resident. I agree with the resident's findings and plan as documented. SUBJECTIVE: no fever or chills, no complaints today OBJECTIVE: NAD CV : RRR, 2/6 SM at LUSB Lungs : CTAB ext : no edema Abd ;soft, NT, NL BS ASSESSMENT AND PLAN: 40 y/o lady with mild MR, schizoaffective DO , and seizures who presented with abd pain 1- Abd pain , resolved . 2- Schizoaffective disorder : continue buspirone and risperidone 3-Seizure do : cont valproic acid 4- Heart murmur , needs echo as out pt Dispo : pending placement.
[2016-07-16] MEDS: busPIRone HCL 10 MG TABLET (FP) PO SCH ×3 (05:37→22:29)
[2016-07-16] MEDS: MECLIZINE HCL 12.5 MG TABLET PO SCH ×3 (05:37→22:25)
[2016-07-16] MEDS: risperiDONE 0.5 MG TABLET (FP) PO SCH ×3 (05:37→22:29)
[2016-07-16] MEDS ORDERED: PT OWN MED DRAWER 7, Y5N ONE ×2 (10:03→22:14)
[2016-07-16] MEDS: RANITIDINE HCL 150 MG TABLET (FP) PO SCH ×2 (10:04→22:25)
[2016-07-16] MEDS: ZINC OXIDE 20% TOPICAL OINTMENT 30 GM TUBE TP SCH ×2 (10:04→22:30)
[2016-07-16] MEDS: levETIRAcetam 250 MG TABLET (FP) PO SCH ×2 (10:04→22:25)
[2016-07-16] MEDS: DIVALPROEX NA *ER* EXTEND REL 250 MG TABLET.SA PO SCH ×2 (10:04→22:25)
--- NOTE | 2016-07-16 11:50 | PN ---
Physical Exam: SUBJECTIVE: Patient seen and examined at [facility] no complaints still awaiting placement OBJECTIVE: Vital Signs Period Temp Pulse Resp BP Sys/Hylton Pulse Ox Last 24 Hr 97.7 F-98.8 F 78-117 18-20 105-134/52-82 GENERAL: The patient is awake and alert ENT: moist mucous membranes. NECK: Trachea midline, full range of motion, supple. LUNGS: Breath sounds equal, clear to auscultation bilaterally HEART: Regular rate and rhythm, S1, S2 ABDOMEN: Soft, nontender, nondistended, normoactive bowel sounds EXTREMITIES: warm, well-perfused Active Medications Generic Name Dose Route Start Last Admin Trade Name Freq PRN Reason Stop Dose Admin Acetaminophen 650 mg 07/08/16 12:40 07/09/16 05:44 Tylenol - PO 650 mg Q4H PRN Administration FEVER OR PAIN Buspirone HCl 10 mg 06/24/16 06:00 07/16/16 05:37 Buspar - PO 10 mg TID DARIAN Administration Divalproex Sodium 250 mg 06/24/16 10:00 07/16/16 10:04 Depakote *Er* - PO 250 mg BID DARIAN Administration Levetiracetam 250 mg 06/23/16 22:00 07/16/16 10:04 Keppra - PO 250 mg BID DARIAN Administration Meclizine HCl 12.5 mg 06/24/16 06:00 07/16/16 05:37 Antivert - PO 12.5 mg TID DARIAN Administration Multi-Ingredient Ointment 1 applic 07/13/16 22:00 07/16/16 10:04 Zinc Oxide TP 1 applic BID DARIAN Administration Ranitidine HCl 150 mg 06/25/16 22:00 07/16/16 10:04 Zantac - PO 150 mg BID DARIAN Administration Risperidone 0.5 mg 06/23/16 22:00 07/16/16 05:37 Risperdal - PO 0.5 mg TID DARIAN Administration ASSESSMENT/PLAN: 40F schizoaffective disorder, vertigo, seizures, mental retardation presents to ER due to displacement from home. Abdominal pain:states she gets it after meals mostly gastritis symptoms Resolved continue zantac SUPA on possible CKD patient does not have acute kidney injury as her chart was reviewed and it seems her baseline Cr is 1.1 most recent Cr 1.0 History of seizures continue keppra 500 mg po bid, depakote er 250 mg po bid Schizoaffective disorder continue buspirone 10 mg po tid, risperidone 0.5 mg po tid hx of veritgo continue meclizine 12.5 mg po tid Breast bleeding: patient states she bleeds from her right breast every couple of weeks currently not active will send for outpatient follow up with PMD and mammogram PPx: Lovenox/SCDs/Ambulate Zanat no PT consult needed FEN No IVF No electrolyte issues regular diet Dispo: 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 - New Patient This patient is new to me today: No - Critical Care Critical Care patient: No
--- NOTE | 2016-07-16 13:49 | PN ---
Teaching Attending Note Name of Resident: Kenroy Cleveland ATTENDING PHYSICIAN STATEMENT I saw and evaluated the patient. I reviewed the resident's note and discussed the case with the resident. I agree with the resident's findings and plan as documented. SUBJECTIVE: no fever or chills. OBJECTIVE: NAD CV : RRR, 2/6 SM at LUSB Lungs: CTAB ext : no edema Abd ;soft, NT, NL BS ASSESSMENT AND PLAN: 40 y/o lady with mild MR, schizoaffective DO , and seizures who presented with abd pain 1- Abd pain , resolved . 2- Schizoaffective disorder : continue buspirone and risperidone 3-Seizure do : cont valproic acid 4- Heart murmur , needs echo as out pt Dispo : pending placement.
[2016-07-17] MEDS: MECLIZINE HCL 12.5 MG TABLET PO SCH ×3 (06:23→21:13)
[2016-07-17] MEDS: busPIRone HCL 10 MG TABLET (FP) PO SCH ×3 (06:23→21:14)
[2016-07-17] MEDS: risperiDONE 0.5 MG TABLET (FP) PO SCH ×3 (06:23→21:13)
[2016-07-17] MEDS ORDERED: PT OWN MED DRAWER 7, Y5N ONE ×3 (09:37→14:11)
[2016-07-17] MEDS: levETIRAcetam 250 MG TABLET (FP) PO SCH ×2 (09:47→21:13)
[2016-07-17] MEDS: RANITIDINE HCL 150 MG TABLET (FP) PO SCH ×2 (09:47→21:13)
--- NOTE | 2016-07-17 11:17 | PN ---
Physical Exam: SUBJECTIVE: Patient seen and examined at bedside no complaints OBJECTIVE: Vital Signs Period Temp Pulse Resp BP Sys/Hylton Pulse Ox Last 24 Hr 98.1 F-98.4 F 80-91 20-20 119-134/62-81 100 GENERAL: The patient is awake and alert ENT: moist mucous membranes. NECK: Trachea midline, full range of motion, supple. LUNGS: Breath sounds equal, clear to auscultation bilaterally HEART: Regular rate and rhythm, S1, S2 ABDOMEN: Soft, nontender, nondistended, normoactive bowel sounds EXTREMITIES: warm, well-perfused Active Medications Generic Name Dose Route Start Last Admin Trade Name Freq PRN Reason Stop Dose Admin Acetaminophen 650 mg 07/08/16 12:40 07/09/16 05:44 Tylenol - PO 650 mg Q4H PRN Administration FEVER OR PAIN Buspirone HCl 10 mg 06/24/16 06:00 07/17/16 06:23 Buspar - PO 10 mg TID DARIAN Administration Divalproex Sodium 250 mg 06/24/16 10:00 07/16/16 22:25 Depakote *Er* - PO 250 mg BID DARIAN Administration Levetiracetam 250 mg 06/23/16 22:00 07/17/16 09:47 Keppra - PO 250 mg BID DARIAN Administration Meclizine HCl 12.5 mg 06/24/16 06:00 07/17/16 06:23 Antivert - PO 12.5 mg TID DARIAN Administration Multi-Ingredient Ointment 1 applic 07/13/16 22:00 07/16/16 22:30 Zinc Oxide TP 1 applic BID DARIAN Administration Ranitidine HCl 150 mg 06/25/16 22:00 07/17/16 09:47 Zantac - PO 150 mg BID DARIAN Administration Risperidone 0.5 mg 06/23/16 22:00 07/17/16 06:23 Risperdal - PO 0.5 mg TID DARIAN Administration ASSESSMENT/PLAN: 40F schizoaffective disorder, vertigo, seizures, mental retardation presents to ER due to displacement from home. Abdominal pain:states she gets it after meals mostly gastritis symptoms Resolved continue zantac SUPA on possible CKD patient does not have acute kidney injury as her chart was reviewed and it seems her baseline Cr is 1.1 most recent Cr 1.0 History of seizures continue keppra 500 mg po bid, depakote er 250 mg po bid Schizoaffective disorder continue buspirone 10 mg po tid, risperidone 0.5 mg po tid hx of veritgo continue meclizine 12.5 mg po tid Breast bleeding: patient states she bleeds from her right breast every couple of weeks currently not active will send for outpatient follow up with PMD and mammogram PPx: Lovenox/SCDs/Ambulate Zanatc no PT consult needed FEN No IVF No electrolyte issues regular diet Dispo: 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 - New Patient This patient is new to me today: No - Critical Care Critical Care patient: No
[2016-07-17] MEDS: DIVALPROEX NA *ER* EXTEND REL 250 MG TABLET.SA PO SCH ×2 (12:25→21:13)
[2016-07-17] MEDS: ZINC OXIDE 20% TOPICAL OINTMENT 30 GM TUBE TP SCH ×2 (12:27→21:14)
--- NOTE | 2016-07-17 12:41 | PN ---
Teaching Attending Note Name of Resident: Kenroy Cleveland ATTENDING PHYSICIAN STATEMENT I saw and evaluated the patient. I reviewed the resident's note and discussed the case with the resident. I agree with the resident's findings and plan as documented. SUBJECTIVE:currently asymptomatic. denies CP, SOB,fever, chills OBJECTIVE: Last Vital Signs Temp Pulse Resp BP Pulse Ox 98.1 F 81 20 119/62 100 07/17/16 06:00 07/17/16 06:00 07/17/16 06:00 07/17/16 06:00 07/16/16 21:00 General NAD ASSESSMENT AND PLAN: 40yo F with PMH MR, seizure and schizoaffective d/o 1. Abdominal pain-resolved 2. Schisoaffective d/o- cont home medications 3. Seizure d/o- no seizure like activity here. cont home medications 4. d/c planning at this time as caregiver is unable to take care of her at the moment. interim placement pending
[2016-07-18] MEDS: risperiDONE 0.5 MG TABLET (FP) PO SCH ×3 (05:56→23:11)
[2016-07-18] MEDS: busPIRone HCL 10 MG TABLET (FP) PO SCH ×3 (05:56→23:11)
[2016-07-18] MEDS: MECLIZINE HCL 12.5 MG TABLET PO SCH ×3 (05:56→23:10)
[2016-07-18] MEDS ORDERED: PT OWN MED DRAWER 7, Y5N ONE ×2 (06:25→13:57)
[2016-07-18] MEDS: DIVALPROEX NA *ER* EXTEND REL 250 MG TABLET.SA PO SCH ×2 (09:56→23:11)
[2016-07-18] MEDS: levETIRAcetam 250 MG TABLET (FP) PO SCH ×2 (09:57→23:10)
[2016-07-18] MEDS: RANITIDINE HCL 150 MG TABLET (FP) PO SCH ×2 (09:57→23:10)
[2016-07-18] MEDS: ZINC OXIDE 20% TOPICAL OINTMENT 30 GM TUBE TP SCH ×2 (09:57→23:13)
--- NOTE | 2016-07-18 14:44 | PN ---
Physical Exam: SUBJECTIVE: Patient seen and examined at bedside supposed to be discharged today but pushed back to tomorrow patient is excited she is being discharged soon. OBJECTIVE: Vital Signs Period Temp Pulse Resp BP Sys/Hylton Pulse Ox Last 24 Hr 97.6 F-98.4 F 84-106 18-20 108-123/59-78 98 GENERAL: The patient is awake and alert ENT: moist mucous membranes. NECK: Trachea midline, full range of motion, supple. LUNGS: Breath sounds equal, clear to auscultation bilaterally HEART: Regular rate and rhythm, S1, S2 ABDOMEN: Soft, nontender, nondistended, normoactive bowel sounds EXTREMITIES: warm, well-perfused Active Medications Generic Name Dose Route Start Last Admin Trade Name Freq PRN Reason Stop Dose Admin Acetaminophen 650 mg 07/08/16 12:40 07/09/16 05:44 Tylenol - PO 650 mg Q4H PRN Administration FEVER OR PAIN Buspirone HCl 10 mg 06/24/16 06:00 07/18/16 14:02 Buspar - PO 10 mg TID DARIAN Administration Divalproex Sodium 250 mg 06/24/16 10:00 07/18/16 09:56 Depakote *Er* - PO 250 mg BID DARIAN Administration Levetiracetam 250 mg 06/23/16 22:00 07/18/16 09:57 Keppra - PO 250 mg BID DARIAN Administration Meclizine HCl 12.5 mg 06/24/16 06:00 07/18/16 14:02 Antivert - PO 12.5 mg TID DARIAN Administration Multi-Ingredient Ointment 1 applic 07/13/16 22:00 07/18/16 09:57 Zinc Oxide TP 1 applic BID DARIAN Administration Ranitidine HCl 150 mg 06/25/16 22:00 07/18/16 09:57 Zantac - PO 150 mg BID DARIAN Administration Risperidone 0.5 mg 06/23/16 22:00 07/18/16 14:01 Risperdal - PO 0.5 mg TID DARIAN Administration ASSESSMENT/PLAN: 40F schizoaffective disorder, vertigo, seizures, mental retardation presents to ER due to displacement from home. Abdominal pain:states she gets it after meals mostly gastritis symptoms Resolved continue zantac SUPA on possible CKD patient does not have acute kidney injury as her chart was reviewed and it seems her baseline Cr is 1.1 most recent Cr 1.0 History of seizures continue keppra 500 mg po bid, depakote er 250 mg po bid Schizoaffective disorder continue buspirone 10 mg po tid, risperidone 0.5 mg po tid hx of veritgo continue meclizine 12.5 mg po tid Breast bleeding: patient states she bleeds from her right breast every couple of weeks currently not active will send for outpatient follow up with PMD and mammogram PPx: Lovenox/SCDs/Ambulate Zanat no PT consult needed FEN No IVF No electrolyte issues regular diet Dispo: 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 - New Patient This patient is new to me today: No - Critical Care Critical Care patient: No - Discharge Referral Referred to [facility] Med P.C.: No
--- NOTE | 2016-07-18 19:00 | PN ---
Teaching Attending Note Name of Resident: Kenroy Cleveland ATTENDING PHYSICIAN STATEMENT I saw and evaluated the patient. I reviewed the resident's note and discussed the case with the resident. I agree with the resident's findings and plan as documented. Comfortable with no acute distress. Vital Signs Temperature 97.7 F 07/18/16 13:53 Pulse Rate 106 H 07/18/16 13:53 Respiratory Rate 20 07/18/16 08:00 Blood Pressure 113/75 07/18/16 13:53 O2 Sat by Pulse Oximetry (%) 98 07/18/16 08:00 CBCD WBC 5.9 K/mm3 (4.0-10.0) 06/23/16 18:30 RBC 4.26 M/mm3 (3.60-5.2) 06/23/16 18:30 Hgb 11.6 GM/dL (10.7-15.3) 06/23/16 18:30 Hct 35.4 % (32.4-45.2) 06/23/16 18:30 MCV 83.1 fl (80-96) 06/23/16 18:30 MCHC 32.7 g/dl (32.0-36.0) 06/23/16 18:30 RDW 13.3 % (11.6-15.6) 06/23/16 18:30 Plt Count 185 K/MM3 (134-434) 06/23/16 18:30 MPV 8.5 fl (7.5-11.1) 06/23/16 18:30 CMP Sodium 140 mmol/L (136-145) 06/26/16 09:50 Potassium 3.7 mmol/L (3.5-5.1) 06/26/16 09:50 Chloride 106 mmol/L (98-107) 06/26/16 09:50 Carbon Dioxide 26 mmol/L (21-32) 06/26/16 09:50 Anion Gap 8 (8-16) 06/26/16 09:50 BUN 10 mg/dL (7-18) 06/26/16 09:50 Creatinine 1.0 mg/dL (0.55-1.02) 06/26/16 09:50 Creat Clearance w eGFR 55.30 (>60) 06/23/16 18:30 Random Glucose 100 mg/dL (74-106) 06/26/16 09:50 Calcium 8.1 mg/dL (8.5-10.1) L 06/26/16 09:50 Total Bilirubin 0.3 mg/dL (0.2-1.0) 06/23/16 18:30 AST 15 U/L (15-37) 06/23/16 18:30 ALT 18 U/L (12-78) 06/23/16 18:30 Alkaline Phosphatase 65 U/L (45-117) 06/23/16 18:30 Total Protein 8.1 g/dl (6.4-8.2) 06/23/16 18:30 Albumin 3.9 g/dl (3.4-5.0) 06/23/16 18:30 Current Medications Generic Name Dose Route Start Last Admin Trade Name Freq PRN Reason Stop Dose Admin Acetaminophen 650 mg 07/08/16 12:40 07/09/16 05:44 Tylenol - PO 650 mg Q4H PRN Administration FEVER OR PAIN Buspirone HCl 10 mg 06/24/16 06:00 07/18/16 14:02 Buspar - PO 10 mg TID DARIAN Administration Divalproex Sodium 250 mg 06/24/16 10:00 07/18/16 09:56 Depakote *Er* - PO 250 mg BID DARIAN Administration Levetiracetam 250 mg 06/23/16 22:00 07/18/16 09:57 Keppra - PO 250 mg BID DARIAN Administration Meclizine HCl 12.5 mg 06/24/16 06:00 07/18/16 14:02 Antivert - PO 12.5 mg TID DARIAN Administration Multi-Ingredient Ointment 1 applic 07/13/16 22:00 07/18/16 09:57 Zinc Oxide TP 1 applic BID DARIAN Administration Ranitidine HCl 150 mg 06/25/16 22:00 07/18/16 09:57 Zantac - PO 150 mg BID DARIAN Administration Risperidone 0.5 mg 06/23/16 22:00 07/18/16 14:01 Risperdal - PO 0.5 mg TID DARIAN Administration Home Medications Medication Instructions Recorded Buspirone HCl [Buspar -] 10 mg PO TID 06/22/16 Divalproex *ER* [Depakote *ER* -] 250 mg PO BID 06/22/16 Famotidine [Pepcid -] 20 mg PO DAILY #30 tablet 06/22/16 Meclizine HCl [Antivert -] 12.5 mg PO TID 06/22/16 Ondansetron HCl [Zofran] 4 mg PO BID PRN #10 tablet 06/22/16 Levetiracetam [Keppra] 250 mg PO BID 06/23/16 Risperidone 0.5 mg PO TID 06/23/16 ASSESSMENT AND PLAN: 40yo F with PMHx MR with IQ of 50, seizure and schizoaffective d/o # Abdominal pain-resolved # Schizoaffective d/o- cont home medications # Seizure d/o- no seizure like activity here. cont home medications d/c planning once caregiver is unable to take care of her at the moment, pending placement.
[2016-07-19] MEDS: risperiDONE 0.5 MG TABLET (FP) PO SCH ×3 (06:18→23:15)
[2016-07-19] MEDS: MECLIZINE HCL 12.5 MG TABLET PO SCH ×3 (06:18→23:14)
[2016-07-19] MEDS: busPIRone HCL 10 MG TABLET (FP) PO SCH ×3 (06:18→23:15)
[2016-07-19] MEDS ORDERED: PT OWN MED DRAWER 7, Y5N ONE ×2 (09:30→14:16)
[2016-07-19] MEDS: levETIRAcetam 250 MG TABLET (FP) PO SCH ×2 (09:37→23:13)
[2016-07-19] MEDS: ZINC OXIDE 20% TOPICAL OINTMENT 30 GM TUBE TP SCH ×2 (09:37→23:16)
[2016-07-19] MEDS: RANITIDINE HCL 150 MG TABLET (FP) PO SCH ×2 (09:37→23:13)
[2016-07-19] MEDS: DIVALPROEX NA *ER* EXTEND REL 250 MG TABLET.SA PO SCH ×2 (09:37→23:15)
--- NOTE | 2016-07-19 11:05 | PN ---
Physical Exam: SUBJECTIVE: Patient seen and examined at bedside awaiting placement OBJECTIVE: Vital Signs Period Temp Pulse Resp BP Sys/Hylton Pulse Ox Last 24 Hr 97.0 F-98.2 F 88-106 16-20 112-140/70-79 98 GENERAL: The patient is awake and alert ENT: moist mucous membranes. NECK: Trachea midline, full range of motion, supple. LUNGS: Breath sounds equal, clear to auscultation bilaterally HEART: Regular rate and rhythm, S1, S2 ABDOMEN: Soft, nontender, nondistended, normoactive bowel sounds EXTREMITIES: warm, well-perfused Active Medications Generic Name Dose Route Start Last Admin Trade Name Freq PRN Reason Stop Dose Admin Acetaminophen 650 mg 07/08/16 12:40 07/09/16 05:44 Tylenol - PO 650 mg Q4H PRN Administration FEVER OR PAIN Buspirone HCl 10 mg 06/24/16 06:00 07/19/16 06:18 Buspar - PO 10 mg TID DARIAN Administration Divalproex Sodium 250 mg 06/24/16 10:00 07/19/16 09:37 Depakote *Er* - PO 250 mg BID DARIAN Administration Levetiracetam 250 mg 06/23/16 22:00 07/19/16 09:37 Keppra - PO 250 mg BID DARIAN Administration Meclizine HCl 12.5 mg 06/24/16 06:00 07/19/16 06:18 Antivert - PO 12.5 mg TID DARIAN Administration Multi-Ingredient Ointment 1 applic 07/13/16 22:00 07/19/16 09:37 Zinc Oxide TP 1 applic BID DARIAN Administration Ranitidine HCl 150 mg 06/25/16 22:00 07/19/16 09:37 Zantac - PO 150 mg BID DARIAN Administration Risperidone 0.5 mg 06/23/16 22:00 07/19/16 06:18 Risperdal - PO 0.5 mg TID DARIAN Administration ASSESSMENT/PLAN: 40F schizoaffective disorder, vertigo, seizures, mental retardation presents to ER due to displacement from home. Abdominal pain:states she gets it after meals mostly gastritis symptoms Resolved continue zantac SUPA on possible CKD patient does not have acute kidney injury as her chart was reviewed and it seems her baseline Cr is 1.1 most recent Cr 1.0 History of seizures continue keppra 500 mg po bid, depakote er 250 mg po bid Schizoaffective disorder continue buspirone 10 mg po tid, risperidone 0.5 mg po tid hx of veritgo continue meclizine 12.5 mg po tid Breast bleeding: patient states she bleeds from her right breast every couple of weeks currently not active will send for outpatient follow up with PMD and mammogram PPx: Lovenox/SCDs/Ambulate Zanat no PT consult needed FEN No IVF No electrolyte issues regular diet Dispo: 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 - New Patient This patient is new to me today: No - Critical Care Critical Care patient: No - Discharge Referral Referred to [facility] Med P.C.: No
--- NOTE | 2016-07-19 15:40 | PN ---
Teaching Attending Note Name of Resident: Kenroy Cleveland ATTENDING PHYSICIAN STATEMENT I saw and evaluated the patient. I reviewed the resident's note and discussed the case with the resident. I agree with the resident's findings and plan as documented. comfortable with no acute distress. Vital Signs Temperature 98.1 F 07/19/16 14:19 Pulse Rate 91 H 07/19/16 14:19 Respiratory Rate 20 07/19/16 08:00 Blood Pressure 130/66 07/19/16 14:19 O2 Sat by Pulse Oximetry (%) 98 07/19/16 08:00 CBCD WBC 5.9 K/mm3 (4.0-10.0) 06/23/16 18:30 RBC 4.26 M/mm3 (3.60-5.2) 06/23/16 18:30 Hgb 11.6 GM/dL (10.7-15.3) 06/23/16 18:30 Hct 35.4 % (32.4-45.2) 06/23/16 18:30 MCV 83.1 fl (80-96) 06/23/16 18:30 MCHC 32.7 g/dl (32.0-36.0) 06/23/16 18:30 RDW 13.3 % (11.6-15.6) 06/23/16 18:30 Plt Count 185 K/MM3 (134-434) 06/23/16 18:30 MPV 8.5 fl (7.5-11.1) 06/23/16 18:30 CMP Sodium 140 mmol/L (136-145) 06/26/16 09:50 Potassium 3.7 mmol/L (3.5-5.1) 06/26/16 09:50 Chloride 106 mmol/L (98-107) 06/26/16 09:50 Carbon Dioxide 26 mmol/L (21-32) 06/26/16 09:50 Anion Gap 8 (8-16) 06/26/16 09:50 BUN 10 mg/dL (7-18) 06/26/16 09:50 Creatinine 1.0 mg/dL (0.55-1.02) 06/26/16 09:50 Creat Clearance w eGFR 55.30 (>60) 06/23/16 18:30 Random Glucose 100 mg/dL (74-106) 06/26/16 09:50 Calcium 8.1 mg/dL (8.5-10.1) L 06/26/16 09:50 Total Bilirubin 0.3 mg/dL (0.2-1.0) 06/23/16 18:30 AST 15 U/L (15-37) 06/23/16 18:30 ALT 18 U/L (12-78) 06/23/16 18:30 Alkaline Phosphatase 65 U/L (45-117) 06/23/16 18:30 Total Protein 8.1 g/dl (6.4-8.2) 06/23/16 18:30 Albumin 3.9 g/dl (3.4-5.0) 06/23/16 18:30 Current Medications Generic Name Dose Route Start Last Admin Trade Name Freq PRN Reason Stop Dose Admin Acetaminophen 650 mg 07/08/16 12:40 07/09/16 05:44 Tylenol - PO 650 mg Q4H PRN Administration FEVER OR PAIN Buspirone HCl 10 mg 06/24/16 06:00 07/19/16 14:22 Buspar - PO 10 mg TID DARIAN Administration Divalproex Sodium 250 mg 06/24/16 10:00 07/19/16 09:37 Depakote *Er* - PO 250 mg BID DARIAN Administration Levetiracetam 250 mg 06/23/16 22:00 07/19/16 09:37 Keppra - PO 250 mg BID DARIAN Administration Meclizine HCl 12.5 mg 06/24/16 06:00 07/19/16 14:22 Antivert - PO 12.5 mg TID DARIAN Administration Multi-Ingredient Ointment 1 applic 07/13/16 22:00 07/19/16 09:37 Zinc Oxide TP 1 applic BID DARIAN Administration Ranitidine HCl 150 mg 06/25/16 22:00 07/19/16 09:37 Zantac - PO 150 mg BID DARIAN Administration Risperidone 0.5 mg 06/23/16 22:00 07/19/16 14:22 Risperdal - PO 0.5 mg TID DARIAN Administration Home Medications Medication Instructions Recorded Buspirone HCl [Buspar -] 10 mg PO TID 06/22/16 Divalproex *ER* [Depakote *ER* -] 250 mg PO BID 06/22/16 Famotidine [Pepcid -] 20 mg PO DAILY #30 tablet 06/22/16 Meclizine HCl [Antivert -] 12.5 mg PO TID 06/22/16 Ondansetron HCl [Zofran] 4 mg PO BID PRN #10 tablet 06/22/16 Levetiracetam [Keppra] 250 mg PO BID 06/23/16 Risperidone 0.5 mg PO TID 06/23/16 ASSESSMENT AND PLAN: 40yo F with PMHx MR with IQ of 50, seizure and schizoaffective d/o # Abdominal pain-resolved # Schizoaffective d/o- cont home medications # Seizure d/o- no seizure like activity here. cont home medications d/c planning ; caregiver is unable to take care of her at the moment, pending placement. life skills worker and immigration case manager is on the case
[2016-07-19] MEDS ORDERED: SODIUM CHLORIDE 1,000 ML IV SCH (23:15)
--- NOTE | 2016-07-19 23:19 | RAPID ---
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 No: Pharyngeal Erythema Neck: Yes: Supple, Trachea Midline Cardiovascular: Yes: Tachycardia, S1, S2 Respiratory: Yes: Regular, CTA Bilaterally. No: Accessory Muscle Use Gastrointestinal: Yes: Soft Musculoskeletal: No: Joint Stiffness, Muscle Pain Edema: No Peripheral Pulses WNL: Yes Neurological: Yes: Alert, Oriented ...Motor Strength: WNL Psychiatric: Yes: Alert, Oriented Labs: CBC, BMP 06/26/16 09:50 Rapid Response - Rapid Response Assessment: Pt found unresponsive sitting up in bed, staring daryn without movements, no riggor/no loss of muscle tone. Patient responded to auditory and sternal rub within 1 minute of response team' s arrival. Knew her name and her location right away, said she felt dizzy. Neuro: facial symmetry, speech normal without slurring. EOMI, no pronator drift , strength in lower and ue extremities equal and 5/5. Oropharynx clear, no tongue lacerations. orthostatics: supine: 143/80 HR 106 Sittin/80 HR 105 Outcome: VSS, afebrile 98.4 oral temp. patient denied, cough, sob, chest pain, palpitations, headache, eye pain, abdominal pain, lightheadness. low suspicion for CVA low suspicion for seizure-no post ictal phase likely syncopal nature CBC, BMP, and IVF ordered. vitals Q2hr for 4hrs. Plan: f/u labs, hydrate, monitor vitals. CBC wnl, BMP with elevated BUN/Cr, likely from dehydration. repeat vitals throughout night stable, no repeats episodes. f/u with primary team in the AM
[2016-07-19 23:39] LABS: MCH 26.4 pg (25.7-33.7); MCHC 31.7 g/dl (32.0-36.0); MEAN CELL VOLUME 83.1 fl (80-96); MEAN PLT VOLUME 8.5 fl (7.5-11.1); PLATELET COUNT 208 K/MM3 (134-434); RDW 13.8 % (11.6-15.6)
[2016-07-20] LABS: CALCIUM 9.6 mg/dL (8.5-10.1); COCKROFT - GAULT 56.338; CREATININE 1.2 mg/dL (0.55-1.02)
[2016-07-20] MEDS: MECLIZINE HCL 12.5 MG TABLET PO SCH ×3 (05:37→21:55)
[2016-07-20] MEDS: risperiDONE 0.5 MG TABLET (FP) PO SCH ×3 (05:38→21:54)
[2016-07-20] MEDS: busPIRone HCL 10 MG TABLET (FP) PO SCH ×3 (05:38→21:55)
--- NOTE | 2016-07-20 08:32 | PN ---
Physical Exam: SUBJECTIVE: Patient seen and examined Events noted. Comfortable with no acute distress. OBJECTIVE: Vital Signs Temperature 98.2 F 07/20/16 04:55 Pulse Rate 64 07/20/16 04:55 Respiratory Rate 18 07/20/16 04:55 Blood Pressure 115/70 07/20/16 04:55 O2 Sat by Pulse Oximetry (%) 98 07/19/16 22:00 GENERAL: The patient is awake, alert, and fully oriented, in no acute distress. HEAD: Normal with no signs of trauma. EYES: PERRL, extraocular movements intact, sclera anicteric, conjunctiva clear. No ptosis. ENT: Ears normal, nares patent, oropharynx clear without exudates, moist mucous membranes. NECK: Trachea midline, full range of motion, supple. LUNGS: Breath sounds equal, clear to auscultation bilaterally, no wheezes, no crackles, no accessory muscle use. HEART: Regular rate and rhythm, S1, S2 without murmur, rub or gallop. ABDOMEN: Soft, nontender, nondistended, normoactive bowel sounds, no guarding, no rebound, no hepatosplenomegaly, no masses. EXTREMITIES: 2+ pulses, warm, well-perfused, no edema. NEUROLOGICAL: Cranial nerves II through XII grossly intact. Normal speech, gait not observed. PSYCH: Normal mood, normal affect. SKIN: Warm, dry, normal turgor, no rashes or lesions noted CBCD WBC 7.0 K/mm3 (4.0-10.0) 07/19/16 23:00 RBC 4.17 M/mm3 (3.60-5.2) 07/19/16 23:00 Hgb 11.0 GM/dL (10.7-15.3) 07/19/16 23:00 Hct 34.7 % (32.4-45.2) 07/19/16 23:00 MCV 83.1 fl (80-96) 07/19/16 23:00 MCHC 31.7 g/dl (32.0-36.0) L 07/19/16 23:00 RDW 13.8 % (11.6-15.6) 07/19/16 23:00 Plt Count 208 K/MM3 (134-434) 07/19/16 23:00 MPV 8.5 fl (7.5-11.1) 07/19/16 23:00 CMP Sodium 139 mmol/L (136-145) 07/19/16 23:00 Potassium 4.4 mmol/L (3.5-5.1) 07/19/16 23:00 Chloride 100 mmol/L (98-107) 07/19/16 23:00 Carbon Dioxide 26 mmol/L (21-32) 07/19/16 23:00 Anion Gap 13 (8-16) 07/19/16 23:00 BUN 27 mg/dL (7-18) H D 07/19/16 23:00 Creatinine 1.2 mg/dL (0.55-1.02) H 07/19/16 23:00 Creat Clearance w eGFR 55.30 (>60) 06/23/16 18:30 Random Glucose 134 mg/dL (74-106) H D 07/19/16 23:00 Calcium 9.6 mg/dL (8.5-10.1) 07/19/16 23:00 Total Bilirubin 0.3 mg/dL (0.2-1.0) 06/23/16 18:30 AST 15 U/L (15-37) 06/23/16 18:30 ALT 18 U/L (12-78) 06/23/16 18:30 Alkaline Phosphatase 65 U/L (45-117) 06/23/16 18:30 Total Protein 8.1 g/dl (6.4-8.2) 06/23/16 18:30 Albumin 3.9 g/dl (3.4-5.0) 06/23/16 18:30 Active Medications Generic Name Dose Route Start Last Admin Trade Name Freq PRN Reason Stop Dose Admin Acetaminophen 650 mg 07/08/16 12:40 07/09/16 05:44 Tylenol - PO 650 mg Q4H PRN Administration FEVER OR PAIN Buspirone HCl 10 mg 06/24/16 06:00 07/20/16 05:38 Buspar - PO 10 mg TID DARIAN Administration Divalproex Sodium 250 mg 06/24/16 10:00 07/19/16 23:15 Depakote *Er* - PO 250 mg BID DARIAN Administration Sodium Chloride 1,000 mls @ 100 mls/hr 07/19/16 23:15 07/19/16 23:35 Normal Saline - IV 07/20/16 09:14 100 mls/hr ASDIR DARIAN Administration Levetiracetam 250 mg 06/23/16 22:00 07/19/16 23:13 Keppra - PO 250 mg BID DARIAN Administration Meclizine HCl 12.5 mg 06/24/16 06:00 07/20/16 05:37 Antivert - PO 12.5 mg TID DARIAN Administration Multi-Ingredient Ointment 1 applic 07/13/16 22:00 07/19/16 23:16 Zinc Oxide TP 1 applic BID DARIAN Administration Ranitidine HCl 150 mg 06/25/16 22:00 07/19/16 23:13 Zantac - PO 150 mg BID DARIAN Administration Risperidone 0.5 mg 06/23/16 22:00 07/20/16 05:38 Risperdal - PO 0.5 mg TID DARIAN Administration ASSESSMENT AND PLAN: 40yo F with PMHx MR with IQ of 50, seizure and schizoaffective d/o # Abdominal pain-resolved # Schizoaffective d/o- cont home medications # Seizure d/o- no seizure like activity here. cont home medications Waiting for placement since her grandmother is in a rehab , and no caregiver is unable to take care of her at the this moment, pending placement. casino gaming worker and oil field caser is on the case Visit type - Emergency Visit Emergency Visit: Yes ED Registration Date: 06/24/16 Care time: The patient presented to the Emergency Department on the above date and was hospitalized for further evaluation of their emergent condition. - New Patient This patient is new to me today: No - Critical Care Critical Care patient: No
[2016-07-20] MEDS ORDERED: PT OWN MED DRAWER 7, Y5N ONE ×3 (09:35→21:06)
[2016-07-20] MEDS: levETIRAcetam 250 MG TABLET (FP) PO SCH ×2 (09:42→21:55)
[2016-07-20] MEDS: DIVALPROEX NA *ER* EXTEND REL 250 MG TABLET.SA PO SCH ×2 (09:42→21:55)
[2016-07-20] MEDS: RANITIDINE HCL 150 MG TABLET (FP) PO SCH ×2 (09:42→21:54)
[2016-07-20] MEDS: ZINC OXIDE 20% TOPICAL OINTMENT 30 GM TUBE TP SCH ×2 (09:43→21:56)
[2016-07-21] MEDS: risperiDONE 0.5 MG TABLET (FP) PO SCH ×3 (06:07→21:48)
[2016-07-21] MEDS: busPIRone HCL 10 MG TABLET (FP) PO SCH ×3 (06:07→21:49)
[2016-07-21] MEDS: MECLIZINE HCL 12.5 MG TABLET PO SCH ×3 (06:11→21:50)
[2016-07-21] MEDS ORDERED: PT OWN MED DRAWER 7, Y5N ONE ×3 (09:59→21:21)
[2016-07-21] MEDS: levETIRAcetam 250 MG TABLET (FP) PO SCH ×2 (10:04→21:49)
[2016-07-21] MEDS: DIVALPROEX NA *ER* EXTEND REL 250 MG TABLET.SA PO SCH ×2 (10:04→21:49)
[2016-07-21] MEDS: RANITIDINE HCL 150 MG TABLET (FP) PO SCH ×2 (10:04→21:49)
[2016-07-21] MEDS: ZINC OXIDE 20% TOPICAL OINTMENT 30 GM TUBE TP SCH ×2 (10:05→21:50)
--- NOTE | 2016-07-21 12:54 | PN ---
Progress Note (short form) - Note Progress Note: comfortable with no acute distress. Vital Signs Temperature 97.7 F 07/21/16 05:45 Pulse Rate 84 07/21/16 05:45 Respiratory Rate 20 07/21/16 05:45 Blood Pressure 115/62 07/21/16 05:45 O2 Sat by Pulse Oximetry (%) 98 07/20/16 21:00 GENERAL: The patient is awake, alert, and fully oriented, in no acute distress. HEAD: Normal with no signs of trauma. EYES: PERRL, extraocular movements intact, sclera anicteric, conjunctiva clear. ENT: Ears normal, oropharynx clear without exudates, moist mucous membranes. NECK: Trachea midline, full range of motion, supple. LUNGS: Breath sounds equal, clear to auscultation bilaterally, no wheezes, no crackles, no accessory muscle use. HEART: Regular rate and rhythm, S1, S2 without murmur, rub or gallop. ABDOMEN: Soft, nontender, nondistended, normoactive bowel sounds, no guarding, no rebound, no hepatosplenomegaly, no masses. EXTREMITIES: 2+ pulses, warm, well-perfused, no edema. NEUROLOGICAL: Cranial nerves II through XII grossly intact. Normal speech, gait is stable PSYCH: Normal mood, normal affect. SKIN: Warm, dry, normal turgor, no rashes or lesions noted CBCD WBC 7.0 K/mm3 (4.0-10.0) 07/19/16 23:00 RBC 4.17 M/mm3 (3.60-5.2) 07/19/16 23:00 Hgb 11.0 GM/dL (10.7-15.3) 07/19/16 23:00 Hct 34.7 % (32.4-45.2) 07/19/16 23:00 MCV 83.1 fl (80-96) 07/19/16 23:00 MCHC 31.7 g/dl (32.0-36.0) L 07/19/16 23:00 RDW 13.8 % (11.6-15.6) 07/19/16 23:00 Plt Count 208 K/MM3 (134-434) 07/19/16 23:00 MPV 8.5 fl (7.5-11.1) 07/19/16 23:00 CMP Sodium 139 mmol/L (136-145) 07/19/16 23:00 Potassium 4.4 mmol/L (3.5-5.1) 07/19/16 23:00 Chloride 100 mmol/L (98-107) 07/19/16 23:00 Carbon Dioxide 26 mmol/L (21-32) 07/19/16 23:00 Anion Gap 13 (8-16) 07/19/16 23:00 BUN 27 mg/dL (7-18) H D 07/19/16 23:00 Creatinine 1.2 mg/dL (0.55-1.02) H 07/19/16 23:00 Creat Clearance w eGFR 55.30 (>60) 06/23/16 18:30 Random Glucose 134 mg/dL (74-106) H D 07/19/16 23:00 Calcium 9.6 mg/dL (8.5-10.1) 07/19/16 23:00 Total Bilirubin 0.3 mg/dL (0.2-1.0) 06/23/16 18:30 AST 15 U/L (15-37) 06/23/16 18:30 ALT 18 U/L (12-78) 06/23/16 18:30 Alkaline Phosphatase 65 U/L (45-117) 06/23/16 18:30 Total Protein 8.1 g/dl (6.4-8.2) 06/23/16 18:30 Albumin 3.9 g/dl (3.4-5.0) 06/23/16 18:30 Current Medications Generic Name Dose Route Start Last Admin Trade Name Lorenzoq PRN Reason Stop Dose Admin Acetaminophen 650 mg 07/08/16 12:40 07/09/16 05:44 Tylenol - PO 650 mg Q4H PRN Administration FEVER OR PAIN Buspirone HCl 10 mg 06/24/16 06:00 07/21/16 06:07 Buspar - PO 10 mg TID DARIAN Administration Divalproex Sodium 250 mg 06/24/16 10:00 07/21/16 10:04 Depakote *Er* - PO 250 mg BID DARIAN Administration Levetiracetam 250 mg 06/23/16 22:00 07/21/16 10:04 Keppra - PO 250 mg BID DARIAN Administration Meclizine HCl 12.5 mg 06/24/16 06:00 07/21/16 06:11 Antivert - PO 12.5 mg TID DARIAN Administration Multi-Ingredient Ointment 1 applic 07/13/16 22:00 07/21/16 10:05 Zinc Oxide TP Not Given BID DARIAN Ranitidine HCl 150 mg 06/25/16 22:00 07/21/16 10:04 Zantac - PO 150 mg BID DARIAN Administration Risperidone 0.5 mg 06/23/16 22:00 07/21/16 06:07 Risperdal - PO 0.5 mg TID DARIAN Administration Home Medications Medication Instructions Recorded Famotidine [Pepcid -] 20 mg PO DAILY #30 tablet 06/22/16 Buspirone HCl [Buspar -] 10 mg PO TID #60 tab 07/19/16 Divalproex *ER* [Depakote *ER* -] 250 mg PO BID #60 tab 07/19/16 Levetiracetam [Keppra] 250 mg PO BID #60 tab 07/19/16 Risperidone 0.5 mg PO TID #60 tab 07/19/16 A/p 40yo F with PMHx MR with IQ of 50, seizure and schizoaffective disorder # Abdominal pain-resolved # Schizoaffective d/o- cont home medications # Seizure d/o- no seizure like activity here. cont home medications Waiting for placement since her grandmother is in a rehab , Caregiver is being arranged for Friday and day care arrangments are being done on Friday (tomorrow ) pending placement. winery worker and caser is on the case All her prescriptions were sent to the pharmacy on Friday07/19/2016; patient was being discharged on 07/19/2016 was held the discharge since day care arrangments were not made. Visit type - Emergency Visit Emergency Visit: Yes ED Registration Date: 06/24/16 Care time: The patient presented to the Emergency Department on the above date and was hospitalized for further evaluation of their emergent condition. - New Patient This patient is new to me today: No - Critical Care Critical Care patient: No
[2016-07-22 05:21] VITALS: BP 134/76
[2016-07-22] MEDS: MECLIZINE HCL 12.5 MG TABLET PO SCH ×2 (05:50→14:13)
[2016-07-22] MEDS: risperiDONE 0.5 MG TABLET (FP) PO SCH ×2 (05:50→14:13)
[2016-07-22] MEDS: busPIRone HCL 10 MG TABLET (FP) PO SCH ×2 (05:50→14:13)
[2016-07-22] MEDS ORDERED: PT OWN MED DRAWER 7, Y5N ONE ×2 (10:19→14:06)
[2016-07-22] MEDS: DIVALPROEX NA *ER* EXTEND REL 250 MG TABLET.SA PO SCH (10:20)
[2016-07-22] MEDS: RANITIDINE HCL 150 MG TABLET (FP) PO SCH (10:20)
[2016-07-22] MEDS: levETIRAcetam 250 MG TABLET (FP) PO SCH (10:20)
[2016-07-22] MEDS: ZINC OXIDE 20% TOPICAL OINTMENT 30 GM TUBE TP SCH (10:21)
--- NOTE | 2016-07-22 10:36 | PN ---
Teaching Attending Note Name of Resident: Gato Patterson ATTENDING PHYSICIAN STATEMENT I saw and evaluated the patient. I reviewed the resident's note and discussed the case with the resident. I agree with the resident's findings and plan as documented. SUBJECTIVE: She is excited to go home today and reports that her "friend" has agreed to provide care until her grandmother can resume care. OBJECTIVE: Vitals noted She is well appearing ASSESSMENT AND PLAN: She is medically stable for discharge Discharge planning per case management/social work, and is appreciated See resident note for full details
[2016-07-22 13:42] VITALS: PULSE 101; TEMP 98
--- NOTE | 2016-07-22 16:53 | PN ---
Physical Exam: SUBJECTIVE: Patient seen and examined at bedside. No overnight events. No new complaints. Patient is eager to go. Denies CP,LLOYD, SOB, abd.pain, palpitation, N/ V. OBJECTIVE: Vital Signs Period Temp Pulse Resp BP Sys/Hylton Pulse Ox Last 24 Hr 97.8 F-98.0 F 78-101 17-20 123-134/67-76 98-98 GENERAL: The patient is awake, alert, and fully oriented, in no acute distress. HEAD: Normal with no signs of trauma. EYES: ENT: Ears normal, nares patent, moist mucous membranes. NECK: Trachea midline, full range of motion, supple. LUNGS: Breath sounds equal, clear to auscultation bilaterally, no wheezes, no crackles, no accessory muscle use. HEART: Regular rate and rhythm, S1, S2 without murmur, rub or gallop. ABDOMEN: Soft, nontender, nondistended, normoactive bowel sounds, no guarding, no rebound, no hepatosplenomegaly, no masses. EXTREMITIES: 2+ pulses, warm, well-perfused, no edema. NEUROLOGICAL: Cranial nerves II through XII grossly intact. Normal speech, gait not observed. Mod. MR PSYCH: Normal mood, normal affect. SKIN: Warm, dry, normal turgor, no rashes or lesions noted Active Medications Generic Name Dose Route Start Last Admin Trade Name Freq PRN Reason Stop Dose Admin Acetaminophen 650 mg 07/08/16 12:40 07/09/16 05:44 Tylenol - PO 650 mg Q4H PRN Administration FEVER OR PAIN Buspirone HCl 10 mg 06/24/16 06:00 07/22/16 14:13 Buspar - PO 10 mg TID DARIAN Administration Divalproex Sodium 250 mg 06/24/16 10:00 07/22/16 10:20 Depakote *Er* - PO 250 mg BID DARIAN Administration Levetiracetam 250 mg 06/23/16 22:00 07/22/16 10:20 Keppra - PO 250 mg BID DARIAN Administration Meclizine HCl 12.5 mg 06/24/16 06:00 07/22/16 14:13 Antivert - PO 12.5 mg TID DARIAN Administration Multi-Ingredient Ointment 1 applic 07/13/16 22:00 07/22/16 10:21 Zinc Oxide TP 1 applic BID DARIAN Administration Ranitidine HCl 150 mg 06/25/16 22:00 07/22/16 10:20 Zantac - PO 150 mg BID DARIAN Administration Risperidone 0.5 mg 06/23/16 22:00 07/22/16 14:13 Risperdal - PO 0.5 mg TID DARIAN Administration ASSESSMENT/PLAN: This note was started in error and completed discharge summary in chart. Visit type - Emergency Visit Emergency Visit: Yes ED Registration Date: 06/24/16 Care time: The patient presented to the Emergency Department on the above date and was hospitalized for further evaluation of their emergent condition. - New Patient This patient is new to me today: Yes Date on this admission: 07/26/16 - Critical Care Critical Care patient: No
--- NOTE | 2016-07-22 17:03 | DS ---
Physical Exam: SUBJECTIVE: Patient seen and examined at bedside. No new complaints.No overnight events. Eager to leave. Denies CP,LLOYD, SOB, abd. pain, N/V OBJECTIVE: Vital Signs Period Temp Pulse Resp BP Sys/Hylton Pulse Ox Last 24 Hr 97.8 F-98.0 F 78-101 17-20 123-134/67-76 98-98 PHYSICAL EXAM GENERAL: The patient is awake, alert, and fully oriented, in no acute distress. HEAD: Normal with no signs of trauma. EYES: sclera anicteric, conjunctiva clear. No lid lag. ENT: Ears normal, nares patent, oropharynx clear without exudates, moist mucous membranes. NECK: Trachea midline, full range of motion, supple. LUNGS: Breath sounds equal, clear to auscultation bilaterally, no wheezes, no crackles, no accessory muscle use. HEART: Regular rate and rhythm, S1, S2 without murmur, rub or gallop. ABDOMEN: Soft, nontender, nondistended, normoactive bowel sounds, no guarding, no rebound, no hepatosplenomegaly, no masses. EXTREMITIES: 2+ pulses, warm, well-perfused, no edema. NEUROLOGICAL: Cranial nerves II through XII grossly intact. Normal speech, gait not observed.Mild MR PSYCH: Normal mood, normal affect. SKIN: Warm, dry, normal turgor, no rashes or lesions noted. 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 Pt normally lives with her grandmother who takes care of pt. Grandmother recently had surgery done and is now at [facility] ([facility]) for rehab. During grandmother's hospital stay pt lived with her oldest sister in [place]. Today she was to go to [facility] to stay with her grandmother where she was told she would be able to stay. She arrived at [facility] and thereafter was told she would not be allowed to stay and was brought to ER. Here she admitted to having 1 episode of vomit w/ streak of blood on Friday (~5 days prior) which was unprovoked and no other episodes of emesis since then. She also c/o 10/10 abdominal pain, non-radiating, located in epigastric area, constant, burning since yesterday. Pain is worsened with eating and there are no alleviating factors. No change in diet, denies N/V/F/C, diarrhea, constipation, blood in stool, black or tarry stool at this time. She also denies CP, SOB, dysuria, or any peripheral swelling. 1.Abdominal pain:states she gets it after meals mostly gastritis symptoms Resolved 2.SUPA on possible CKD patient does not have acute kidney injury as her chart was reviewed and it seems her baseline Cr is 1.1 most recent Cr 1.0 3.History of seizures continue keppra 500 mg po bid, depakote er 250 mg po bid no seizures during stay 4.Schizoaffective disorder continue buspirone 10 mg po tid, risperidone 0.5 mg po tid 4.Breast bleeding: patient states she bleeds from her right breast every couple of weeks currently not active will send for outpatient follow up with PMD and mammogram Date of Admission:06/24/16 Date of Discharge: 07/22/16 Minutes to complete discharge: 40 Discharge Summary Reason For Visit: DEHYDRATION, MENTAL RETARDATION Current Active Problems SUPA (acute kidney injury) (Acute) Breakthrough seizure (Acute) Dehydration (Acute) Galactorrhea in female (Acute) Mental retardation (Acute) Schizoaffective disorder (Acute) Tonic clonic convulsion (Acute) Condition: Stable - Instructions Diet, Activity, Other Instructions: Need mammogram to evaluate for possible bloody discharge from R nipple - need echo to evaluate heart murmur Disposition: HOME - Home Medications Comprehensive Discharge Medication List: Ambulatory Orders Famotidine [Pepcid -] 20 mg PO DAILY #30 tablet 06/22/16 Buspirone HCl [Buspar -] 10 mg PO TID #60 tab 07/19/16 Divalproex *ER* [Depakote *ER* -] 250 mg PO BID #60 tab 07/19/16 Levetiracetam [Keppra] 250 mg PO BID #60 tab 07/19/16 Risperidone 0.5 mg PO TID #60 tab 07/19/16 This patient is new to me today: Yes Date on this admission: 07/22/16 Emergency Visit: Yes ED Registration Date: 06/24/16 Care time: The patient presented to the Emergency Department on the above date and was hospitalized for further evaluation of their emergent condition. Critical Care patient: No - Discharge Referral Referred to [facility] No Physician Referral: Winston Coffey MD ([facility])
== END 2016-07-22 18:23 | DRG 392 ==
LOC: JER 16:22 → JERBED 06-24 01:01 → OBSVTOIN 06-24 09:01 → J6S 06-24 12:15
PROVIDERS: ADMIT Internal Medicine; ATTEND Internal Medicine
DX: K29.70 Gastritis, unspecified, without bleeding (principal); G40.802 Other epilepsy, not intractable, without status epilepticus; N17.9 Acute kidney failure, unspecified; F78 Other intellectual disabilities; E86.0 Dehydration; F25.8 Other schizoaffective disorders; R42 Dizziness and giddiness; K27.9 Peptic ulcer, site unspecified, unspecified as acute or chronic, without hemorrhage or perforation; H54.42 Blindness, left eye, normal vision right eye; J02.9 Acute pharyngitis, unspecified; J06.9 Acute upper respiratory infection, unspecified; N18.9 Chronic kidney disease, unspecified; R01.1 Cardiac murmur, unspecified; H55.00 Unspecified nystagmus; Z59.0 Homelessness
CPT/HCPCS: 36415; 80048; 80053; 81003; 82150; 83690; 84703; 85025; 85027; 87086; 96365; 96375; 99282-25; 99284-25; G0378

== ENCOUNTER 2016-08-18 21:09 | Emergency (ER) | payer OTHER ==
[2016-08-18 21:34] VITALS: BMI 29.2
[2016-08-18 23:57] LABS: URINE APPEARANCE CLEAR; URINE BILIRUBIN NEGATIVE (NEGATIVE); URINE BLOOD NEGATIVE (NEGATIVE); URINE COLOR YELLOW; URINE GLUCOSE (UA) NEGATIVE (NEGATIVE); URINE KETONE 1+ (NEGATIVE); URINE LEUK ESTERASE NEGATIVE (NEGATIVE); URINE NITRITE NEGATIVE (NEGATIVE); URINE PROTEIN NEGATIVE (NEGATIVE); URINE UROBILINOGEN NEGATIVE E.U./dl (0.2-1.0)
[2016-08-19 00:10] LABS: URINE MARIJUANA THC NEGATIVE ng/ml (CUTOFF=50)
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
[2016-08-19] MEDS ORDERED: AZITHROMYCIN 1 GM PACKET PO ONE (03:42)
[2016-08-19] MEDS ORDERED: AZITHROMYCIN 1 GM PACKET ONE (04:04)
[2016-08-19] MEDS ORDERED: cefTRIAXone SODIUM 1 GM VIAL ONE (04:05)
[2016-08-19] MEDS ORDERED: HIV POST EXPOSURE PROPHYLAXIS KIT NR ONE (04:16)
[2016-08-19 04:52] LABS: BASOPHIL 0.7 % (0-2.0); EOSINOPHIL 1.4 % (0-4.5); MCH 26.6 pg (25.7-33.7); MCHC 31.9 g/dl (32.0-36.0); MEAN CELL VOLUME 83.4 fl (80-96); MEAN PLT VOLUME 8.7 fl (7.5-11.1); NEUTROPHILS 63.8 % (42.8-82.8); PLATELET COUNT 182 K/MM3 (134-434); RDW 13.3 % (11.6-15.6); WHITE BLOOD COUNT 6.8 K/mm3 (4.0-10.0)
[2016-08-19] MEDS ORDERED: HIV POST EXPOSURE PROPHYLAXIS KIT PO ONE (04:54)
[2016-08-19 05:11] VITALS: BP 122/80; PULSE 72; TEMP 98
[2016-08-19 05:14] LABS: ALBUMIN 4.2 g/dl (3.4-5.0); CALCIUM 9.1 mg/dL (8.5-10.1); COCKROFT - GAULT 74.3665; CREATININE 1.2 mg/dL (0.55-1.02)
[2016-08-19 05:16] LABS: BILIRUBIN,TOTAL 0.4 mg/dL (0.2-1.0); TOT PROT 8.5 g/dl (6.4-8.2)
[2016-08-19 05:30] LABS: HIV 1 & 2 AB NEGATIVE; HIV 1 AGp24 NEGATIVE
[2016-08-21 00:06] LABS: HEP B SURFACE AB Reactive (.)
== END 2016-08-19 05:11 | disposition home or self-care (01) ==
LOC: JER 21:09
DX: Z04.41 Encounter for examination and observation following alleged adult rape (principal)
CPT/HCPCS: 36415; 80053; 80074; 80307; 81003; 84703; 85025; 86593; 86706; 87389; 87491; 87591; 96372; 99283-25

== ENCOUNTER 2017-11-26 17:15 | Emergency (ER) | payer OTHER ==
[2017-11-26 17:35] VITALS: BP 126/70; PULSE 64; TEMP 97; BMI 31.8
--- NOTE | 2017-11-26 18:09 | PDOC ---
History of Present Illness - General Chief Complaint: Pain Stated Complaint: PAIN Time Seen by Provider: 11/26/17 17:51 History Source: Patient Exam Limitations: Clinical Condition - History of Present Illness Initial Comments: 11/26/17 18:06 Patient with a no sig past medical history present with complain of burning in vulvar area with bumps to vulva area. Patient reported increased burning with urination. Denies any vaginal discharge. Patient having her menstrual period now. Timing/Duration: other (3 months) Past History - Past Medical History Allergies/Adverse Reactions: Allergies Allergy/AdvReac Type Severity Reaction Status Date / Time grapefruit Allergy Verified 11/26/17 17:35 Sulfa (Sulfonamide Allergy Verified 11/26/17 17:35 Antibiotics) Home Medications: Ambulatory Orders Buspirone HCl [Buspar -] 10 mg PO TID #60 tab 07/19/16 Divalproex *ER* [Depakote *ER* -] 250 mg PO BID #60 tab 07/19/16 Levetiracetam [Keppra] 250 mg PO BID #60 tab 07/19/16 Risperidone 0.5 mg PO TID #60 tab 07/19/16 Emtricitabine/Tenofovir [Truvada] 1 tab PO DAILY #25 tablet 08/19/16 Raltegravir [Isentress -] 400 mg PO BID #50 tab 08/19/16 COPD: No Psychiatric Problems: Yes (schizoeffective, dev delayed) Seizures: Yes - Immunization History Immunization Up to Date: Yes - Suicide/Smoking/Psychosocial Hx Smoking History: Never smoked Have you smoked in the past 12 months: No Number of Cigarettes Smoked Daily: 0 Hx Alcohol Use: No Drug/Substance Use Hx: No Substance Use Type: None Hx Substance Use Treatment: No (There is a positive history of substance abuse in two siblings.) Review of Systems - Review of Systems Able to Perform ROS?: Yes Is the patient limited Vietnamese proficient: No Constitutional: No: Chills, Diaphoresis, Fever, Loss of Appetite, Malaise, Night Sweats, Weakness, Weight Stable, Unintentional Wgt. Loss, Unexplained wgt Loss, Other HEENTM: No: Eye Pain, Blurred Vision, Tearing, Recent change in vision, Double Vision, Cataracts, Ear Pain, Ocular Prothesis, Ear Discharge, Nose Pain, Nose Congestion, Tinnitus, Nose Bleeding, Hearing Loss, Throat Pain, Throat Swelling , Mouth Pain, Dental Problems, Difficulty Swallowing, Mouth Swelling, Other Respiratory: No: Cough, Orthopnea, Shortness of Breath, SOB with Exertion, SOB at Rest, Stridor, Wheezing, Productive cough, Hemoptysis, Other Cardiac (ROS): No: Chest Pain, Edema, Irregular Heart Rate, Lightheadedness, Palpitations, Syncope, Chest Tightness, Other ABD/GI: No: Abdominal Distended, Abd. Pain w/ defecation, Blood Streaked Bowels , Constipated, Diarrhea, Difficulty Swallowing, Nausea, Poor Appetite, Poor Fluid Intake, Rectal Bleeding, Vomiting, Indigestion, Abdominal cramping, Tarry Stools, Other : Yes: See HPI, Burning. No: Dysuria, Discharge, Frequency, Urgency Musculoskeletal: No: Back Pain, Gout, Joint Pain, Joint Swelling, Muscle Pain, Muscle Weakness, Neck Pain, Joint Stiffness, Other Integumentary: Yes: Lumps (vulva area) *Physical Exam - Vital Signs Last Vital Signs Temp Pulse Resp BP Pulse Ox 97 F L 64 18 126/70 100 11/26/17 17:32 11/26/17 17:32 11/26/17 17:32 11/26/17 17:32 11/26/17 17:32 - Physical Exam Comments: 11/26/17 18:56 GENERAL: Well developed, well nourished. Awake and alert. No acute distress. HEENT: Normocephalic, atraumatic. PERRLA, EOMI. No conjunctival pallor. Sclera are non- icteric. Moist mucous membranes. Oropharynx is clear. NECK: Supple. Full ROM. No JVD. Carotid pulses 2+ and symmetric, without bruits. No thyromegaly. No lymphadenopathy. CARDIOVASCULAR: Regular rate and rhythm. No murmurs, rubs, or gallops. Distal pulses are 2+ and symmetric. PULMONARY: No evidence of respiratory distress. Lungs clear to auscultation bilaterally. No wheezing, rales or rhonchi. ABDOMINAL: Soft. Non-tender. Non-distended. No rebound or guarding. No organomegaly. Normoactive bowel sounds. MUSCULOSKELETAL Normal range of motion at all joints. No bony deformities or tenderness. No CVA tenderness. EXTREMITIES: No cyanosis. No clubbing. No edema. No calf tenderness. SKIN: Warm and dry. Normal capillary refill. No rashes. No jaundice. NEUROLOGICAL: Alert, awake, appropriate. Cranial nerves 2-12 intact. No deficits to light touch and temperature in face, upper extremities and lower extremities. No motor deficits in the in face, upper extremities and lower extremities. Normoreflexic in the upper and lower extremities. Normal speech. Toes are down- going bilaterally. Gait is normal without ataxia. PSYCHIATRIC: Cooperative. Good eye contact. Appropriate mood and affect. : No visible lesions on the vulvar or vaginal area. Scant dark blood in vaginal vault consistent with menses. No visible lesions. No discharge vaginal vault General Appearance: Yes: Nourished, Appropriately Dressed. No: Apparent Distress Medical Decision Making - Medical Decision Making 11/26/17 18:58 Patient with history of h/o developmental delay present with complain of 3 months history of vulvar and vaginal burning with urination. Patient seen by [facility] 3 months ago and as per patient she was given antifungal medication for symptoms has been persistent and patient has not followed up. Exam shows no visible lesions on vulvar or vaginal area. UA with no sig parents findings. GC chlamydia sent. Patient is discharged home which with follow-up *DC/Admit/Observation/Transfer Diagnosis at time of Disposition: Vaginitis Qualifiers: Chronicity: acute Qualified Code(s): N76.0 - Acute vaginitis - Discharge Dispostion Disposition: HOME Condition at time of disposition: Stable Decision to Admit order: No - Referrals Referrals: Everett Storey MD [Primary Care Provider] - Aracely Pacheco MD [Staff Physician] - - Patient Instructions Printed Discharge Instructions: DI for Vaginal Yeast Infection Additional Instructions: No rash visualized on exam. Urine test done was normal. Follow-up with referred [facility] - Post Discharge Activity
[2017-11-26 18:21] LABS: URINE APPEARANCE SLCLOUDY; URINE BILIRUBIN NEGATIVE (<2.0 mg/dL); URINE COLOR YELLOW; URINE GLUCOSE (UA) NEGATIVE (NEGATIVE); URINE KETONE NEGATIVE (NEGATIVE); URINE LEUK ESTERASE NEGATIVE (NEGATIVE); URINE NITRITE NEGATIVE (NEGATIVE); URINE UROBILINOGEN NEGATIVE mg/dL (0.2-1.0)
[2017-11-26 18:24] LABS: URINE PROTEIN 1+ (NEGATIVE)
[2017-11-26 18:26] LABS: EPI CELLS RARE /HPF (FEW); URINE MUCUS RARE
== END 2017-11-26 19:09 | disposition home or self-care (01) ==
LOC: JERFT 17:15
DX: N76.0 Acute vaginitis (principal)
CPT/HCPCS: 36415; 81003; 81015; 87086; 87491; 87591; 87661; 99281-25